=== PATIENT | male | born 1985 | race Caucasian/White ===

== ENCOUNTER 2019-09-04 16:29 | Inpatient (IN) | payer SELFPAY ==
[2019-09-04 17:47] VITALS: BP 165/78; PULSE 127; RESP 16; TEMP 37.1; O2SAT 97; BMI 23.8
--- NOTE | 2019-09-04 19:07 | PC.NURSE ---
SECURITY SITTING WITH PT
--- NOTE | 2019-09-04 19:28 | W.ED.PSYCH ---
Documented by User: KWADWO Ramirez 09/04/19 19:30 HPI - Psych General: Chief Complaint: Psychiatric Symptoms Stated Complaint: SEEING THINGS Time Seen by Provider: 09/04/19 19:30 History of Present Illness: HPI Narrative: Patient here because he started hallucinating not for the last continued through yesterday. He left the house his mom says and that when he returned he was seen things. Has been detox of alcohol about 3 weeks ago. Has no suicidal thoughts presently has had them in the past. Smashed car window out here in the parking lot with a crowbar. Police brought him in. Denies any drug use presently. Has history of meth abuse. MD complaint: altered mental status Onset (ago): day(s) (2) Duration: constant Relieving factors: none Context: recent alcohol abuse Associated psychiatric symptoms: homicidal ideation, auditory hallucinations, visual hallucinations and delusions Associated symptoms: Reports auditory hallucinations, visual hallucinations and homicidal ideation; Deny depression Treatments prior to arrival: none Review of Systems Const: Denies: fever, chills or body aches Eyes: Denies: change in vision or blurry vision ENMT: Denies: throat pain or nasal congestion Card: Denies: chest pain or shortness of breath on exertion Resp: Denies: shortness of breath, productive cough or non-productive cough GI: Denies: abdominal pain, nausea or vomiting : Denies: difficulty urinating Musc: Denies: extremity pain Skin/Breast: Denies: rash Neuro: Denies: headache Psych: Reports: visual hallucinations, auditory hallucinations and homicidal ideation; Denies: anxiety or depression Silvestre/Lymph: Denies: easy bruising [facility] ED PFSH: Social History Smoking and tobacco status: current every day smoker Physical Exam Narrative: EXAM NARRATIVE: Appears to be tweaking Const: COMMON NORMALS: no apparent distress, average body habitus and oriented x3 HENMT: COMMON NORMALS: normocephalic HEAD & SCALP: normal to inspection and normocephalic FACE & SINUS: normal facial exam Eye: COMMON NORMALS: conjunctivae normal GENERAL EYE: normal appearance of both eyes CONJUNCTIVA: Yes conjunctivae normal Neck/C-Spine: COMMON NORMALS: no JVD Chest: COMMONS NORMALS: inspection of chest normal Resp: COMMON NORMALS: normal respiratory effort and clear to auscultation bilaterally AUSCULTATION: clear to auscultation bilaterally Cardio: COMMON NORMALS: no JVD, regular rate and regular rhythm RATE: regular rate RHYTHM: regular rhythm GI: COMMON NORMALS: normal to inspection, nondistended, normoactive bowel sounds Extremity: COMMON NORMALS: normal to inspection and full ROM Neuro: COMMON NORMALS: oriented x3 MDM - Psych Lab Data: Labs: Lab Results 09/04/19 09/04/19 09/04/19 Range/Units 19:34 19:34 20:53 WBC 11.2 H (4.0-10.0) 10^3/ uL RBC 4.54 (4.1-5.3) 10^6/u L Hgb 13.9 (11.7-16.6) g/dL Hct 40.8 L (42.0-52.0) % MCV 89.9 (80-94) fL MCH 30.6 (28.0-34.0) pg MCHC 34.1 (30.0-36.0) g/dL RDW 13.1 (12.1-15.1) % Plt Count 261 (130-400) 10^3/c mm MPV 9.4 (7.4-10.4) fL Neut % (Auto) 69.5 % Lymph % (Auto) 15.5 % Cobb % (Auto) 13.6 % Eos % (Auto) 0.2 % Baso % (Auto) 0.8 % Neut # (Auto) 7.8 H (1.8-7.7) 10^3/u L Lymph # (Auto) 1.7 (0.8-4.8) 10^3/u L Cobb # (Auto) 1.5 H (0.2-0.9) 10^3/u L Eos # (Auto) 0.0 (0.0-0.8) 10^3/u L Baso # (Auto) 0.1 (0.0-0.1) 10^3/u L Nucleated RBC % (a uto) 0 % Nucleated RBCs # 0.0 /100WBC Sodium 136 (136-145) mmol/L Potassium 3.7 (3.5-5.1) mmol/L Chloride 95 L (98-107) mmol/L Carbon Dioxide 19 L (22-29) mmol/L Anion Gap 25.7 H (5-19) BUN 15 (6-20) mg/dL Creatinine 0.8 (0.7-1.2) mg/dL GFR Calculation 109.4 (90-130) mL/min Glucose 95 (65-115) mg/dL Calculated Osmolal ity 278 L (285-295) mOsm/k g Calcium 10.6 H (8.5-10.5) mg/dL Total Bilirubin 0.9 (0.15-1.2) mg/dL AST 64 H (0-40) U/L ALT 51 H (0-41) U/L Alkaline Phosphata se 81 (40-130) IU/L Total Protein 7.5 (6.6-8.7) g/dL Albumin 5.1 (3.5-5.2) g/dL Globulin 2.4 (1.3-4.6) g/dL Urine Color Yellow (Yellow) Urine Appearance Hazy A (CLEAR) Urine pH 6 (5-7) Ur Specific Gravit y 1.020 (1.005-1.030) Urine Protein 1+ H (Negative) Urine Glucose (UA) Norm (Normal) Urine Ketones 1+ H (Negative) Urine Blood Neg (Negative) Urine Nitrate Negative (Negative) Urine Bilirubin Neg (NEGATIVE) Urine Urobilinogen Norm (Negative) mg/dL Ur Leukocyte Iqra ase Negative (Negative) Urine RBC None (0-2) /hpf Urine WBC 5-10 H (0-5) /hpf Ur Squamous Epith Cells Rare (0-5) Urine Bacteria Trace (NONE) Urine Mucus 1+ Urine Sperm 2+ Salicylates 0.6 L (3-10) mg/dL Urine Opiates Scre en (Negative) ng/mL Acetaminophen < 5.0 L (10-30) ug/mL Ur Barbiturates Sc reen (Negative) ng/mL Ur Phencyclidine S crn (Negative) ng/mL Ur Amphetamines Sc reen (Negative) ng/mL U Benzodiazepines Scrn (Negative) ng/mL Urine Cocaine Scre en (Negative) ng/mL U Marijuana (THC) Screen (Negative) ng/mL Ethyl Alcohol 11 H (0-10) mg/dL 09/04/19 Range/Units 20:53 WBC (4.0-10.0) 10^3/ uL RBC (4.1-5.3) 10^6/u L Hgb (11.7-16.6) g/dL Hct (42.0-52.0) % MCV (80-94) fL MCH (28.0-34.0) pg MCHC (30.0-36.0) g/dL RDW (12.1-15.1) % Plt Count (130-400) 10^3/c mm MPV (7.4-10.4) fL Neut % (Auto) % Lymph % (Auto) % Cobb % (Auto) % Eos % (Auto) % Baso % (Auto) % Neut # (Auto) (1.8-7.7) 10^3/u L Lymph # (Auto) (0.8-4.8) 10^3/u L Cobb # (Auto) (0.2-0.9) 10^3/u L Eos # (Auto) (0.0-0.8) 10^3/u L Baso # (Auto) (0.0-0.1) 10^3/u L Nucleated RBC % (a uto) % Nucleated RBCs # /100WBC Sodium (136-145) mmol/L Potassium (3.5-5.1) mmol/L Chloride (98-107) mmol/L Carbon Dioxide (22-29) mmol/L Anion Gap (5-19) BUN (6-20) mg/dL Creatinine (0.7-1.2) mg/dL GFR Calculation (90-130) mL/min Glucose (65-115) mg/dL Calculated Osmolal ity (285-295) mOsm/k g Calcium (8.5-10.5) mg/dL Total Bilirubin (0.15-1.2) mg/dL AST (0-40) U/L ALT (0-41) U/L Alkaline Phosphata se (40-130) IU/L Total Protein (6.6-8.7) g/dL Albumin (3.5-5.2) g/dL Globulin (1.3-4.6) g/dL Urine Color (Yellow) Urine Appearance (CLEAR) Urine pH (5-7) Ur Specific Gravit y (1.005-1.030) Urine Protein (Negative) Urine Glucose (UA) (Normal) Urine Ketones (Negative) Urine Blood (Negative) Urine Nitrate (Negative) Urine Bilirubin (NEGATIVE) Urine Urobilinogen (Negative) mg/dL Ur Leukocyte Iqra ase (Negative) Urine RBC (0-2) /hpf Urine WBC (0-5) /hpf Ur Squamous Epith Cells (0-5) Urine Bacteria (NONE) Urine Mucus Urine Sperm Salicylates (3-10) mg/dL Urine Opiates Scre en Negative (Negative) ng/mL Acetaminophen (10-30) ug/mL Ur Barbiturates Sc reen Negative (Negative) ng/mL Ur Phencyclidine S crn Negative (Negative) ng/mL Ur Amphetamines Sc reen Positive H (Negative) ng/mL U Benzodiazepines Scrn Negative (Negative) ng/mL Urine Cocaine Scre en Negative (Negative) ng/mL U Marijuana (THC) Screen Negative (Negative) ng/mL Ethyl Alcohol (0-10) mg/dL Discharge Plan Discharge Patient Disposition: Admitted As Inpatient Admit Provider: Brendon Corona Clinical Impression: Drug-induced psychotic disorder Condition: Stable Interventions: ED Discharge Assessment Last Done: 09/04/19 22:11 Discharge Date/Time: 09/04/19 22:13 Sign Out Sign Out Data: Patient Sign Out occurred on 09/04/19 at 21:31. Patient's care was discussed, and care was transferred from to Nikita Beatty DO. Coding Level of Care Code ED Postal Inspector for Chg Fwd Exam Comprehensive Documented by User: Nikita Beatty DO 09/05/19 01:53 HPI - Psych General: Chief Complaint: Psychiatric Symptoms Stated Complaint: SEEING THINGS Time Seen by Provider: 09/04/19 19:30 [facility] ED PFSH: Social History Smoking and tobacco status: current every day smoker MDM - Psych Lab Data: Labs: Lab Results 03/09/04/19 09/04/19 Range/Units 19:34 19:34 20:53 WBC 11.2 H (4.0-10.0) 10^3/ uL RBC 4.54 (4.1-5.3) 10^6/u L Hgb 13.9 (11.7-16.6) g/dL Hct 40.8 L (42.0-52.0) % MCV 89.9 (80-94) fL MCH 30.6 (28.0-34.0) pg MCHC 34.1 (30.0-36.0) g/dL RDW 13.1 (12.1-15.1) % Plt Count 261 (130-400) 10^3/c mm MPV 9.4 (7.4-10.4) fL Neut % (Auto) 69.5 % Lymph % (Auto) 15.5 % Cobb % (Auto) 13.6 % Eos % (Auto) 0.2 % Baso % (Auto) 0.8 % Neut # (Auto) 7.8 H (1.8-7.7) 10^3/u L Lymph # (Auto) 1.7 (0.8-4.8) 10^3/u L Cobb # (Auto) 1.5 H (0.2-0.9) 10^3/u L Eos # (Auto) 0.0 (0.0-0.8) 10^3/u L Baso # (Auto) 0.1 (0.0-0.1) 10^3/u L Nucleated RBC % (a uto) 0 % Nucleated RBCs # 0.0 /100WBC Sodium 136 (136-145) mmol/L Potassium 3.7 (3.5-5.1) mmol/L Chloride 95 L (98-107) mmol/L Carbon Dioxide 19 L (22-29) mmol/L Anion Gap 25.7 H (5-19) BUN 15 (6-20) mg/dL Creatinine 0.8 (0.7-1.2) mg/dL GFR Calculation 109.4 (90-130) mL/min Glucose 95 (65-115) mg/dL Calculated Osmolal ity 278 L (285-295) mOsm/k g Calcium 10.6 H (8.5-10.5) mg/dL Total Bilirubin 0.9 (0.15-1.2) mg/dL AST 64 H (0-40) U/L ALT 51 H (0-41) U/L Alkaline Phosphata se 81 (40-130) IU/L Total Protein 7.5 (6.6-8.7) g/dL Albumin 5.1 (3.5-5.2) g/dL Globulin 2.4 (1.3-4.6) g/dL Urine Color Yellow (Yellow) Urine Appearance Hazy A (CLEAR) Urine pH 6 (5-7) Ur Specific Gravit y 1.020 (1.005-1.030) Urine Protein 1+ H (Negative) Urine Glucose (UA) Norm (Normal) Urine Ketones 1+ H (Negative) Urine Blood Neg (Negative) Urine Nitrate Negative (Negative) Urine Bilirubin Neg (NEGATIVE) Urine Urobilinogen Norm (Negative) mg/dL Ur Leukocyte Iqra ase Negative (Negative) Urine RBC None (0-2) /hpf Urine WBC 5-10 H (0-5) /hpf Ur Squamous Epith Cells Rare (0-5) Urine Bacteria Trace (NONE) Urine Mucus 1+ Urine Sperm 2+ Salicylates 0.6 L (3-10) mg/dL Urine Opiates Scre en (Negative) ng/mL Acetaminophen < 5.0 L (10-30) ug/mL Ur Barbiturates Sc reen (Negative) ng/mL Ur Phencyclidine S crn (Negative) ng/mL Ur Amphetamines Sc reen (Negative) ng/mL U Benzodiazepines Scrn (Negative) ng/mL Urine Cocaine Scre en (Negative) ng/mL U Marijuana (THC) Screen (Negative) ng/mL Ethyl Alcohol 11 H (0-10) mg/dL 09/04/19 Range/Units 20:53 WBC (4.0-10.0) 10^3/ uL RBC (4.1-5.3) 10^6/u L Hgb (11.7-16.6) g/dL Hct (42.0-52.0) % MCV (80-94) fL MCH (28.0-34.0) pg MCHC (30.0-36.0) g/dL RDW (12.1-15.1) % Plt Count (130-400) 10^3/c mm MPV (7.4-10.4) fL Neut % (Auto) % Lymph % (Auto) % Cobb % (Auto) % Eos % (Auto) % Baso % (Auto) % Neut # (Auto) (1.8-7.7) 10^3/u L Lymph # (Auto) (0.8-4.8) 10^3/u L Cobb # (Auto) (0.2-0.9) 10^3/u L Eos # (Auto) (0.0-0.8) 10^3/u L Baso # (Auto) (0.0-0.1) 10^3/u L Nucleated RBC % (a uto) % Nucleated RBCs # /100WBC Sodium (136-145) mmol/L Potassium (3.5-5.1) mmol/L Chloride (98-107) mmol/L Carbon Dioxide (22-29) mmol/L Anion Gap (5-19) BUN (6-20) mg/dL Creatinine (0.7-1.2) mg/dL GFR Calculation (90-130) mL/min Glucose (65-115) mg/dL Calculated Osmolal ity (285-295) mOsm/k g Calcium (8.5-10.5) mg/dL Total Bilirubin (0.15-1.2) mg/dL AST (0-40) U/L ALT (0-41) U/L Alkaline Phosphata se (40-130) IU/L Total Protein (6.6-8.7) g/dL Albumin (3.5-5.2) g/dL Globulin (1.3-4.6) g/dL Urine Color (Yellow) Urine Appearance (CLEAR) Urine pH (5-7) Ur Specific Gravit y (1.005-1.030) Urine Protein (Negative) Urine Glucose (UA) (Normal) Urine Ketones (Negative) Urine Blood (Negative) Urine Nitrate (Negative) Urine Bilirubin (NEGATIVE) Urine Urobilinogen (Negative) mg/dL Ur Leukocyte Iqra ase (Negative) Urine RBC (0-2) /hpf Urine WBC (0-5) /hpf Ur Squamous Epith Cells (0-5) Urine Bacteria (NONE) Urine Mucus Urine Sperm Salicylates (3-10) mg/dL Urine Opiates Scre en Negative (Negative) ng/mL Acetaminophen (10-30) ug/mL Ur Barbiturates Sc reen Negative (Negative) ng/mL Ur Phencyclidine S crn Negative (Negative) ng/mL Ur Amphetamines Sc reen Positive H (Negative) ng/mL U Benzodiazepines Scrn Negative (Negative) ng/mL Urine Cocaine Scre en Negative (Negative) ng/mL U Marijuana (THC) Screen Negative (Negative) ng/mL Ethyl Alcohol (0-10) mg/dL Discharge Plan Discharge Patient Disposition: Admitted As Inpatient Admit Provider: Brendon Corona Clinical Impression: Drug-induced psychotic disorder Condition: Stable Interventions: ED Discharge Assessment Last Done: 09/04/19 22:11 Discharge Date/Time: 09/04/19 22:13 Sign Out Sign Out Data: Patient Sign Out occurred on 09/04/19 at 21:31. Patient's care was discussed, and care was transferred from to Nikita Beatty DO. Coding Level of Care Code ED Postal Inspector for Shanon Fwd Exam Comprehensive
[2019-09-04 19:42] LABS: Basophils # 0.1 10^3/uL (0.0-0.1); Basophils % 0.8 %; Eosinophils % 0.2 %; Hematocrit 40.8 % (42.0-52.0); Hemoglobin 13.9 g/dL (11.7-16.6); Lymphocytes # 1.7 10^3/uL (0.8-4.8); Lymphocytes % 15.5 %; Mean Corpuscular HGB Conc 34.1 g/dL (30.0-36.0); Mean Corpuscular Hemoglobin 30.6 pg (28.0-34.0); Mean Corpuscular Volume 89.9 fL (80-94); Mean Platelet Volume 9.4 fL (7.4-10.4); Monocytes # 1.5 10^3/uL (0.2-0.9); Monocytes % 13.6 %; Neutrophils # 7.8 10^3/uL (1.8-7.7); Neutrophils % 69.5 %; Nucleated Red Blood Cells % 0 %; Platelet Count 261 10^3/cmm (130-400); Red Blood Count 4.54 10^6/uL (4.1-5.3); Red Cell Distribution Width 13.1 % (12.1-15.1); White Blood Count 11.2 10^3/uL (4.0-10.0)
[2019-09-04 19:56] LABS: Alanine Aminotransferase 51 U/L (0-41); Albumin Level 5.1 g/dL (3.5-5.2); Alcohol Level 11 mg/dL (0-10); Alkaline Phosphatase 81 IU/L (40-130); Anion Gap 25.7 (5-19); Aspartate Amino Transferase 64 U/L (0-40); Blood Urea Nitrogen 15 mg/dL (6-20); Calcium 10.6 mg/dL (8.5-10.5); Carbon Dioxide 19 mmol/L (22-29); Chloride 95 mmol/L (98-107); Globulin 2.4 g/dL (1.3-4.6); Glomerular Filtration Rate 109.4 mL/min (90-130); Glucose 95 mg/dL (65-115); Osmolality Calculated 278 mOsm/kg (285-295); Potassium 3.7 mmol/L (3.5-5.1); Salicylate 0.6 mg/dL (3-10); Sodium 136 mmol/L (136-145); Total Bilirubin 0.9 mg/dL (0.15-1.2); Total Protein 7.5 g/dL (6.6-8.7)
[2019-09-04 19:57] LABS: Acetaminophen < 5.0 ug/mL (10-30)
[2019-09-04 21:30] LABS: Add Urine Microscopic? YES; Bilirubin Urine Neg (NEGATIVE); Blood Urine Neg (Negative); Glucose Urine UA Norm (Normal); Ketones Urine 1+ (Negative); Leukocyte Esterase Urine Negative (Negative); Nitrate Urine Negative (Negative); Protein Urine 1+ (Negative); Urine Appearance Hazy (CLEAR); Urine Color Yellow (Yellow); Urobilinogen Urine Norm (Negative); pH Urine 6 (5-7)
[2019-09-04 21:31] LABS: Add Urine Culture? No; Bacteria Urine TRACE; Mucus Urine 1+; Sperm Urine 2+; Squamous Epithelial Cell Urine RARE (0-5)
[2019-09-04 21:34] LABS: Amphetamines Screen Urine Positive (Negative); Barbiturates Screen Urine Negative (Negative); Benzodiazepines Screen Urine Negative (Negative); Cocaine Screen Urine Negative (Negative); Opiate Screen Urine Negative (Negative); PCP Screen Urine Negative (Negative); THC Screen Urine Negative (Negative)
--- NOTE | 2019-09-04 21:39 | PC.PHAR ---
UNABLE TO OBTAIN MEDICATION LIST FROM PT. HE GETS IT THROUGH REHAB AND DOESN'T KNOW WHAT HE TAKES OR WHEN HE TAKES IT.
[2019-09-04 22:11] VITALS: BP 162/92; PULSE 110; RESP 18; TEMP 36.6; O2SAT 96
[2019-09-04 22:24] VITALS: BP 157/99; PULSE 115; RESP 19; TEMP 36.9; O2SAT 115
[2019-09-04] MEDS: trazodone 50 mg Tablet PO (23:04)
[2019-09-04] MEDS: hyDROXYzine 25 mg Capsule 50 MG PO (23:05)
--- NOTE | 2019-09-04 23:09 | PC.NURSE ---
pt unable to remain still and jerking so bad that he is hitting objects. Pt. restless and having difficulty answering questions. Medicated with Vistaril 50mgs and Trazadone 50mg po per prn order. Respirations even and unlabored. Will continue to monitor
[2019-09-05] MEDS: OLANZapine ODT 5 MG TABLET PO (00:40)
[2019-09-05] MEDS: haloperidol inj 5 mg/mL INJ 1 mL IM (00:52)
[2019-09-05] MEDS: LORazepam 2 mg/mL INJ 1 mL IM (00:54)
--- NOTE | 2019-09-05 00:57 | PC.NURSE ---
Pt remained up in room and unable to stay in bed. Jerking to extremities appeared to have become worse. Pt would agree to prn Im but each time would pull away and refused before givien. Pt noted to be very paranoid and stated I know about those tigers you have up front Pt did agree to zyprexa 5 mg odt. prn. After receiving prn Zyprexa pt up to desk and requested IM injection. Medicated with Ativan 2mg and haldol 5mgs IM per prn order. Repitrations even and unlabored. Will continue to monitor
--- NOTE | 2019-09-05 01:51 | PC.NURSE ---
come in last evening at 2218, WAS TWEEKING FROM METH, CONTINUED TO GET WORSE, UNABLE TO SIT STILL, VERY RED FACED.. WAS GIVEN TRAZODONE 50 MG PO , VISTARIL 50 MG PO FOR RESTLESSNESS AND SAYING HE NEEDS TO SLEEP. CONTINUES TO ESCALATE, VERY RESTLESS,WALKED IN [place] WITH HIM FOR QUITE SOME TIME, AGREED TO TAKE SOME ATIVAN AND HALDOL IM, KEPT CHANGING HIS MIND, KEPT WALKING WITH ASSIST IN [place], UNSTEADY ON FEET. FINALLY AGREED TO TAKE PO MEDS, WAS GIVEN ZYPREXA KITA HAWKINS AND ALL OF SUDDEN STATES, HELL GIVE ME THE SHOT , WAS GIVEN ATIVAN 2 MG IM AND HALDOL 5 MG IM RIGHT HIP HALLUCINATING, TALKING ABOUT TIGERS IN ROOM, APPEARS TO BE HAVING CONVERSATIONS WITH PEOPLE, THROWING ARMS AROUND, STRIPPED HIS BED. AT 0200 CONTINUES TO BE RESTLESS, HALLUCINATING., YELLING OUT AT TIMES. , LAYING IN BED.
--- NOTE | 2019-09-05 01:53 | PC.NURSE ---
pt continues to refuseto remain in bed and unable to remain still when standing. Gait unsteady. Jerking of exts remain since recevimg prns. Actively hallucinating. Has been having conversations with no one in room
--- NOTE | 2019-09-05 02:42 | PC.NURSE ---
Pt has appeared to be resting more comfortably over last 45 minutes. Has remained in bed and appears in a restless sleep. Continues to have twitching to exts but much less. Respirations even and unlabored, Will continue to monitor.
--- NOTE | 2019-09-05 03:25 | PC.NURSE ---
CONTINUES TO THRASH AROUND IN BED, HALLUCINATING, TALKING LOUDLY, UNABLE TO REDIRECT NOT BAD BEFORE.
[2019-09-05 06:00] VITALS: BP 123/7; PULSE 102; RESP 17; TEMP 36.4; O2SAT 96
--- NOTE | 2019-09-05 08:28 | PM.NHP ---
Providers/Chief Complaint Admitting Physician: Brendon Corona MD Primary Care Provider: KWADWO Mares Chief Complaint: SEEING THINGS HPI NPU History of Present Illness Chief complaint:None History of present illness:Don Patel is a 34 year old male Who initially started reporting symptoms of depression and suicidal ideation but later indicates that what he really needs his medication for pain. He denied any suicidal or homicidal ideation. He reports that he is currently in treatment at [facility] and his goal to return there when he is released from this hospitalization. Laboratory Tests 09/04/19 09/04/19 19:34 20:53 Urine Opiates Screen Negative Ur Barbiturates Screen Negative Ur Phencyclidine Scrn Negative Ur Amphetamines Screen Positive H U Benzodiazepines Scrn Negative Urine Cocaine Screen Negative U Marijuana (THC) Screen Negative Ethyl Alcohol 11 H ER physician note: HPI Narrative: Patient here because he started hallucinating not for the last continued through yesterday. He left the house his mom says and that when he returned he was seen things. Has been detox of alcohol about 3 weeks ago. Has no suicidal thoughts presently has had them in the past. Smashed car window out here in the parking lot with a crowbar. Police brought him in. Denies any drug use presently. Mental health history: -18 admit note Mr. Patel is a 32-year-old male who was admitted from [facility] ED where he was presented with his family with a complaint of auditory hallucinations. Patient is placed on a 96 hour hold supported by affidavits from the ED ED physician. As he presents today patient reports that he is been hearing voices for the past year or so, and states that at times they are overwhelming. He also reports a history of methamphetamine use, and states that he used most recently 1 week ago. His UDS is positive for amphetamines. Review of the medical record indicates that he was hospitalized on the NPU in August 2016 for similar presentation however his symptoms were more acute, and he did relate a history of severe methamphetamine use. At that time he was prescribed Haldol discharged. Patient reports that he has not continued he takes medication and that a medication cause my job lock . He does recall possibly a previous prescription of Depakote. He reports that his mood has been irritable, and he has difficulty shutting his mind off at night. When the patient was informed that he is on a 96 hour hold he became quite agitated and irritable. (1) Amphetamine use disorder, severe Hospital Course: The patient was admitted to the hospital inpatient psychiatric unit. He was provided a safe, supportive environment and encouraged to participate in individual, group, recreational, and milieu psychotherapies. Staff worked with him on positive coping skills. Medications were reviewed and adjustments were made based on the patient's symptoms and response to treatment. 1. Initially continued 96 hour hold. 2. Started Abilify 15 mg at bedtime for psychosis/mood stabilization 3. Started Remeron 15 mg by mouth daily at bedtime for sleep. 4. Consulted care management regarding discharge planning/chemical dependency treatment options. 5. Supportive counseling, group therapy provided as indicated and appropriate initially continued. Social history: Legal history: Past medical history: Mental Status Exam: Appearance: hygiene is fair; no gross neurological deficits., gait is unremarkable; AIMS=0 Speech: Speech is of normal rate and rhythm and easily understood. Thought processes: Thought processes are abstract. Judgment is adequate for safety. Associations: intact Psychotic processes: There is no indication of guarding or paranoia. There is no attention to the internal stimuli. Auditory and visual hallucinations are denied. Judgment: Insight is fair. Problem solving skills are adequate for safety. Orientation: The patient is oriented to person, place time and situation. Memory: no deficits noted in immediate, intermediate, or remote spheres. Attention: The patient is alert and interpersonally engaged. Language: Verbalizations are coherent. Fund of knowledge: Fund of knowledge is adequate. Affect/Mood: Affect is consistent with a Euthymic mood. Denying suicidal ideation Affective range appropriate. Psychosis: perception unimpaired except through cognitive distortion; reality testing intact. Diagnoses:Methamphetamine abuse Assessment:Patient has a primary diagnosis polysubstance abuse and psychosis is clearly secondary to this problem. Over the first 24 hours becoming clean, his psychosis resolved. Treatment plan: Due to the psychiatric conditions and treatment listed in the Assessment and Plan - the patient requires continued hospitalization. Will provide a safe and therapeutic environment for patient.. Will continue inpatient treatment to allow for medication adjustment and monitoring. Will continue q15 min safety checks. Will continue current medications and monitor for medication side effects. Monitor patient's mood, sleep, appetite, and behavior closely. Encourage patient to participate in individual and group therapeutic sessions on the antonio. Estimated length of stay 5 days The expected benefits and potential side effects of patient's psychiatric medications were discussed with the patient. The patient understands and consents to treatment.CRITERIA FOR DISCHARGE: stable on medications and no longer an imminent risk Meds NPU Allergies Allergy/AdvReac Type Severity Reaction Status Date / Time No Known Allergies Allergy Verified 09/04/19 19:04 PFSH NPU PFSH: Social History Smoking and tobacco status: current every day smoker Vitals/I&O/Wt Last Vital Signs Temp 97.5 F L 09/05/19 06:00 Pulse 102 H 09/05/19 06:00 Resp 17 09/05/19 06:00 BP 123/7 09/05/19 06:00 Pulse Ox 96 09/05/19 06:00 Weight last 48 hrs Weight 67.132 kg Data NPU : 09/04/19 19:34 09/04/19 19:34 Involuntary Hold Information 96 Hour Hold: 96 Hour Involuntary Admission: No Attestations NPU Medical Necessity Statement*: Patient will remain in the hospital another 1-2 nights to confirm that he is not an imminent risk to self or others. Coding Level of Care Code Acute Branch Office Administrator for Shanon Perez
[2019-09-05 14:00] VITALS: BP 119/65; PULSE 108; RESP 18; TEMP 36.6; O2SAT 97
[2019-09-05] MEDS: gabapentin 300 mg Capsule 600 MG PO (14:16)
[2019-09-05 22:00] VITALS: BP 105/70; PULSE 119; RESP 18; TEMP 36.6; O2SAT 94
[2019-09-06] MEDS: PARoxetine 20 mg Tablet 30 MG PO (08:16)
[2019-09-06] MEDS: gabapentin 300 mg Capsule 600 MG PO ×2 (08:16→14:39)
[2019-09-06 09:28] VITALS: BP 110/63; PULSE 101; RESP 19; TEMP 36.8; O2SAT 96
[2019-09-06 10:38] VITALS: BP 110/63; PULSE 101; RESP 19; TEMP 36.8; O2SAT 96
[2019-09-06] MEDS: loperamide 2 mg Capsule PO (11:41)
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
== END 2019-09-06 15:18 | disposition home or self-care (01) | DRG 885 ==
LOC: ER 21:31 → NP 21:52
PROVIDERS: Nurse Practitioner Family; Admitting Provider Psychiatry & Neurology Psychiatry; Emergency Provider Family Medicine; Family Provider Nurse Practitioner; PCP Nurse Practitioner; Visit Provider Psychiatry & Neurology Psychiatry
DX: F29 Unspecified psychosis not due to a substance or known physiological condition (principal); F10.21 Alcohol dependence, in remission; F17.210 Nicotine dependence, cigarettes, uncomplicated; F19.10 Other psychoactive substance abuse, uncomplicated
CPT/HCPCS: 12345; 36415; 80053; 80306; 80307; 81001; 85025; 96372; 99284; A9270; J1630; J2060

== ENCOUNTER → 2020-03-23 16:18 | Outpatient (BNVA) | payer OTHER, SELFPAY | PROVIDERS: Family Provider Nurse Practitioner; PCP Nurse Practitioner; Visit Provider Nurse Practitioner Family | DX: Z20.828 Contact with and (suspected) exposure to other viral communicable diseases (principal) | CPT/HCPCS: 87635 ==

== ENCOUNTER → 2020-12-31 16:21 | Outpatient (BNVA) | payer OTHER, SELFPAY | PROVIDERS: Family Provider Nurse Practitioner; PCP Nurse Practitioner; Visit Provider Nurse Practitioner Family | DX: Z20.822 Contact with and (suspected) exposure to COVID-19 (principal) | CPT/HCPCS: 87635 ==

== ENCOUNTER 2022-05-21 09:12 | Emergency (ER) | payer SELFPAY ==
[2022-05-21] VITALS (36 sets, daily range): BP systolic 119–159; BP diastolic 74–97; PULSE 75–85; RESP 14–18; TEMP 36.8; O2SAT 95–100; BMI 26.6
--- NOTE | 2022-05-21 09:26 | ECG_ITS ---
[facility] Test Date: 2022-05-21 Pat Name: Don Patel Department: Room: Gender: Male Automotive Porter: : 1985 Requested By: Nikita Garcia Order Number: [id number] Gaurav MD: Myah Jasso M.D. Measurements Intervals Sebastian Rate: 68 P: 59 [place]: 172 QRS: 67 QRSD: 102 T: 35 QT: 375 QTc: 400 Interpretive Statements SINUS RHYTHM WITH SINUS ARRHYTHMIA NONSPECIFIC ST & T-WAVE ABNORMALITY Compared to ECG 08/31/2016 22:03:45 T-wave abnormality now present ST (T wave) deviation no longer present Early repolarization no longer present Electronically Signed On 05-21-2022 19:01:06 [employer] by Myah Jasso M.D. [id number]
--- NOTE | 2022-05-21 12:54 | XRR_ITS ---
PROCEDURE INFORMATION: Exam: XR Chest Exam date and time: 05/21/2022 1:05 PM Age: 36 years old Clinical indication: Cough TECHNIQUE: Imaging protocol: Radiologic exam of the chest. Views: 2 views. COMPARISON: CR XR chest 1V [id number] 08/31/2016 7:39 PM FINDINGS: Lungs: Unremarkable. No consolidation. Pleural spaces: Unremarkable. No pleural effusion. No pneumothorax. Heart/Mediastinum: Unremarkable. No cardiomegaly. Bones/joints: Unremarkable. XR/XR chest 2V* [id number] IMPRESSION: No acute findings.
--- NOTE | 2022-05-21 15:03 | W.ED.CHESTPA ---
HPI - Chest Pain General: Chief Complaint: Chest Pain Stated Complaint: chest pain Time Seen by Provider: 05/21/22 14:41 Source: patient and family Mode of arrival: ambulatory Limitations: no limitations History of Present Illness: This patient presents to our emergency department because of concerns about left-sided chest pain. He states the symptoms of been present approximately 1 week. He states it is predominantly on the left chest without radiation. He states they are worsened by cough, turning twisting and deep breaths. He is unaware of any antecedent injury, falls, leaning over objects or other potential etiologies of a musculoskeletal pain. He denies any fevers or chills. He states his cough is usually related to his smoking and has not changed and was there preceding his current symptoms. He has no known history of COPD coronary artery disease etc. He has no history of thromboembolic events or risk for same. Does not take any daily medications. No known exposure to illness and no one else is ill in his home. He is a tobacco user. He is right-handed. MD complaint: chest pain Pain location: left chest Exacerbating factors: inspiration, palpation and movement Associated symptoms: Deny abdominal pain, dyspnea, fever(s), nausea, palpitations, syncope or vomiting Risk Factors: Coronary artery disease risk factors: smoking history Review of Systems Const: Denies: fever(s) or chills Eyes: Denies: change in vision ENMT: Reports: nasal congestion and sinus pain; Denies: throat pain or odynophagia Card: Reports: chest pain; Denies: palpitations, irregular heart rhythm, lightheadedness, syncope or pre-syncope Resp: Reports: non-productive cough; Denies: dyspnea, wheezing or stridor GI: Denies: abdominal pain, nausea, vomiting or diarrhea : Denies: flank pain or difficulty urinating Musc: Denies: neck pain, back pain, extremity pain or extremity swelling Skin/Breast: Denies: rash Neuro: Denies: headache(s), numbness in extremities or weakness in extremities Silvestre/Lymph: Denies: easy bruising or easy bleeding All/Imm: Denies: urticaria PFSH ED PFSH: Social History Smoking and tobacco status: current every day smoker cigarettes Packs smoked per day: 0.5 Alcohol intake: former Year of sobriety/quit date alcohol: 2018 History of recent travel: No Current gender identity: Male Physical Exam Narrative: EXAM NARRATIVE: He is alert and cooperative. His speech is goal-directed and fluent. Appears to be in no acute distress. Const: COMMON NORMALS: no acute distress, average body habitus, patient oriented x3 and healthy appearing GENERAL APPEARANCE: cooperative and comfortable HENMT: COMMON NORMALS: normocephalic, Normal external nose present, Normal nasal mucous membranes and turbinates present, moist oral mucous membranes and oropharynx normal HEAD & SCALP: normocephalic FACE & SINUS: normal facial exam and sinuses nontender NOSE: Normal external nose present and Normal nasal mucous membranes and turbinates present Eye: COMMON NORMALS: Equal, round and reactive pupils present, EOMs intact bilaterally and conjunctivae normal CONJUNCTIVA: Yes conjunctivae normal PUPIL: Yes Equal, round and reactive pupils present Neck/C-Spine: COMMON NORMALS: full ROM, no lymphadenopathy, no JVD and No carotid bruits Chest: COMMONS NORMALS: normal inspection of the chest OTHER: He has tenderness in the left anterior lateral chest. No skin rashes or ecchymosis or subcutaneous emphysema. No palpable rib crepitus. Inspiration as well as twisting and turning of his trunk reproduces symptoms. Resp: COMMON NORMALS: normal respiratory effort, No use of accessory muscles and clear to auscultation bilaterally AUSCULTATION: clear to auscultation bilaterally Cardio: COMMON NORMALS: no JVD, regular rate, regular rhythm, No murmurs present (Cardio) and Peripheral pulses 2+ throughout RATE: regular rate RHYTHM: regular rhythm PERIPHERAL PULSES: Peripheral pulses 2+ throughout GI: COMMON NORMALS: Normal to inspection, nondistended, normoactive bowel sounds present, Soft to palpation and non-tender PALPATION: Yes Soft to palpation : COMMON NORMALS: Yes no CVA tenderness BLADDER/KIDNEY EXAM: Yes no CVA tenderness Back/Pelvis: COMMON NORMALS: no CVA tenderness, thoracic and lumbar spine normal to inspection, no thoracic nor lumbar tenderness and thoraco-lumbar ROM normal Extremity: COMMON NORMALS: normal to inspection, full ROM, capillary refill normal, no joint enlargement, no calf tenderness and no pedal edema Neuro: COMMON NORMALS: patient oriented x3, moves all extremities, no focal motor deficits, no sensory deficits noted and gait normal GAIT: Yes Normal gait present Psych: COMMON NORMALS: mental status grossly normal Skin: COMMON NORMALS: no rashes or lesions noted, turgor normal and no jaundice GENERAL SKIN EXAM: no rashes or lesions noted and turgor normal Course Reevaluation(s): Reevaluation #1: Patient has remained stable. No new or focal findings on his repeat evaluation. His vital signs have remained stable throughout his emergency department stay. His chest x-ray, EKG, laboratories are reassuring and support no evidence of an ongoing emergency medical condition. Time: 17:45 Vital Signs: Vital signs: Vital Signs Temperature 98.3 F 05/21/22 11:47 Pulse Rate 85 05/21/22 14:30 Respiratory Rate 18 05/21/22 14:30 Blood Pressure 119/81 05/21/22 17:15 Pulse Oximetry 96 05/21/22 17:15 Oxygen Delivery Me thod 05/21/22 14:30 MDM - Chest Pain Medical Decision Making Patient presents to the emergency department left-sided chest pain. He has history of tobacco use and chronic cough but denies any fevers or productivity to his cough. He denies any known chest trauma, lifting, falls etc. His clinical evaluation revealed chest wall tenderness that was easily reproducible with palpation as well as torquing of his trunk etc. There is no skin rashes to suggest zoster, no evidence of pneumothorax, rib fractures etc. His PERC score was negative and this was supported by negative D-dimer. His troponin was also negative along with a unremarkable EKG mitigating against ACS. It would appear to be chest wall pain of uncertain etiology at this time. All return precautions were reviewed with both he and his spouse. Lab Data I reviewed the patient's lab results. Radiology Impressions Chest X-Ray 05/21/22 12:54 IMPRESSION: No acute findings. Laboratory Results D-Dimer 0.39 ug/mIFEU (0-0.59) 05/21/22 15:48 Troponin T Gen 5 ng/L 6 ng/L (0-15) 05/21/22 15:48 EKG Data EKG 1: I personally reviewed and interpreted this EKG as follows: Interpretation: EKG reveals a ventricular rate of 68 bpm consistent with sinus rhythm. He has normal intervals, normal axis, no acute ST-T wave changes noted. Discharge Plan Discharge Patient Disposition: Home Clinical Impression: Chest pain Condition: Stable Prescriptions: New prednisone 20 mg tablet 40 mg PO DAILY 5 Days Qty: 10 0RF tramadol 50 mg tablet 50 mg PO BID PRN (Reason: pain) Qty: 10 0RF No Action Aleve 220 mg Capsule 220 mg PO Q8H PRN (Reason: Pain) Discharge Orders: Discharge ED (Routine); Ordered 05/21/22 Ordered By: Jerel Wade Referrals: Geri Cárdenas FNP [Primary Care Provider] - Discharge Diet: Usual diet Discharge Activity: Increase activity as tolerated Patient Instructions: Opioid Safety, Pain Management Activity Restrictions/Additional Instructions: As we discussed while you are in the emergency department we did not have any findings today that suggest a serious cause of your pain. We have recommended to medications to help with your symptoms. Should you have worsening of your symptoms, develop fever, become short of breath or any other concerns return to this or the nearest emergency department. We also recommend you stop smoking tobacco as it is harmful and could lead to worsening health problems. Coding Level of Care Code ED Shipping Processor for Shanon Perez Exam Comprehensive
[2022-05-21 16:11] LABS: D Dimer 0.39 ug/mIFEU (0-0.59)
[2022-05-21 17:16] LABS: Troponin T (5th) Once 6 ng/L (0-15)
== END 2022-05-21 17:53 | disposition home or self-care (01) ==
PROVIDERS: Emergency Provider Emergency Medicine; PCP Nurse Practitioner
DX: R07.9 Chest pain, unspecified (principal); F17.210 Nicotine dependence, cigarettes, uncomplicated
CPT/HCPCS: 71046; 84484; 85378; 93005; 99285

== ENCOUNTER 2022-10-08 09:28 | Emergency (ER) | payer SELFPAY ==
[2022-10-08 09:33] VITALS: BP 188/86; PULSE 101; RESP 18; TEMP 36.4; O2SAT 96
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
[2022-10-08 10:06] VITALS: PULSE 95
[2022-10-08] MEDS: ceFAZolin 1,000 MG in water for injection-sterile 2.5 ML 2.5 MG IM (10:12)
--- NOTE | 2022-10-08 10:16 | DCPLANNER ---
credentialing manager seen patient due to no primary care physician. credentialing manager spoke with patient and offered to help get patient established with a primary care physician, patient stated that he does not have insurance. credentialing manager gave patient the information to [facility] where patient can apply for the sliding scale.
[2022-10-08 11:32] VITALS: PULSE 95; RESP 18; O2SAT 99
--- NOTE | 2022-10-08 11:37 | DCPLANNER ---
Addendum entered by Keily Colvin 10/09/22 08:35: alteration manager received the following message from the ortho clinic regarding follow up appointment: attempt made to contact patient - left vm and mailed letter to call our clinic to schedule w/ dr cooper who is fire prevention engineer. Original Note: alteration manager had message to schedule a follow up appointment for patient with ortho. alteration manager sent patients information to the front office staff at ortho. Patients information will be printed and reviewed. Clinic will call patient with appointment information.
== END 2022-10-08 11:35 | disposition home or self-care (01) ==
PROVIDERS: Emergency Provider Physician Assistant
DX: S62.660B Nondisplaced fracture of distal phalanx of right index finger, initial encounter for open fracture (principal); F17.210 Nicotine dependence, cigarettes, uncomplicated; W22.8XXA Striking against or struck by other objects, initial encounter
CPT/HCPCS: 12001; 73140; 96365; 96372; 99284; A6446; J0690

== ENCOUNTER 2023-07-01 11:23 | Emergency (ER) | payer MEDICAID, SELFPAY ==
[2023-07-01 11:31] VITALS: BP 160/98; PULSE 107; RESP 16; TEMP 36.4; O2SAT 95; BMI 27.3
[2023-07-01 12:03] LABS: Basophils # 0.1 10^3/uL (0.0-0.1); Basophils % 1.5 %; Eosinophils % 0.4 %; Lymphocytes % 19.5 %; Mean Corpuscular HGB Conc 34.5 g/dL (30-55); Mean Corpuscular Hemoglobin 33.7 pg (27-33); Mean Corpuscular Volume 97.7 fl (82-101); Mean Platelet Volume 10.6 fL (7.4-10.4); Monocytes # 0.6 10^3/uL (0.2-0.9); Monocytes % 10.9 %; Neutrophils # 3.59 10^3/uL (1.8-7.7); Neutrophils % 67.5 %; Nucleated Red Blood Cells % 0 %; Platelet Count 163 10^3/cmm (157-399); Red Blood Count 4.81 10^6/uL (3.85-5.65); Red Cell Distribution Width 12.3 % (12.1-15.1); White Blood Count 5.32 10^3/uL (3.29-11.43)
[2023-07-01] MEDS: sodium chloride 0.9% 1,000 ML 999 ML IV (12:11)
[2023-07-01] MEDS: ondansetron 2 mg/ML SDV 2 mL 4 MG IVP (12:11)
[2023-07-01 12:14] LABS: Alanine Aminotransferase 242 U/L (0-41); Albumin Level 3.8 g/dL (3.5-5.2); Alkaline Phosphatase 589 U/L (40-130); Blood Urea Nitrogen 14 mg/dL (6-20); Calcium 8.6 mg/dL (8.5-10.5); Carbon Dioxide 27 mmol/L (22-29); Chloride 99 mmol/L (98-107); Globulin 2.9 g/dL (1.3-4.6); Glomerular Filtration Rate 82.8 mL/min (90-130); Glucose 217 mg/dL (65-115); Lipase 27 U/L (13-60); Osmolality Calculated 291 mOsm/kg (285-295); Sodium 137 mmol/L (136-145); Total Bilirubin 2.4 mg/dL (0.15-1.2); Total Protein 6.7 g/dL (6.6-8.7)
[2023-07-01 12:23] LABS: Aspartate Amino Transferase 936 U/L (0-40)
--- NOTE | 2023-07-01 12:27 | US_ITS ---
WS: [id number] ULTRASOUND ABDOMEN LIMITED CLINICAL INFORMATION: ruq pain COMPARISON: None. FINDINGS: Liver Size: Enlarged Craniocaudal length: 19.7 cm. Echogenicity: Dense Surface nodularity: None. Mass (size and location): None. Bile ducts Intrahepatic ducts: Normal. Common bile duct diameter: 0.6 cm. Gallbladder Fluid distended gallbladder with sludge. Gallstones: None. Gallbladder sludge: Present Gallbladder wall thickening: None. Pericholecystic fluid: None. Sonographic Chatman sign: Absent. Pancreas Normal as visualized. Right kidney: Normal. Hydronephrosis: None. Size: 10.9 cm x 6.2 cm x 5.0 cm. Abdominal aorta and IVC Visualized portions are normal. Ascites: None. IMPRESSION: 1. Hepatomegaly with diffuse fatty infiltration. 2. Fluid distended gallbladder with sludge. No gallbladder wall thickening or pericholecystic fluid. 3. Normal common bile duct.
[2023-07-01 12:33] LABS: Influenza A by IFA negative (Negative); Influenza B by IFA negative (Negative); SARS Covid-2 Antigen negative (Negative)
[2023-07-01 12:44] LABS: Glucose Urine UA Trace (Normal); Ketones Urine 1+ (Negative); Protein Urine 3+ (Negative); Urine Appearance Hazy (CLEAR); Urine Color Dark Yellow (Yellow); pH Urine 7 (5-7)
[2023-07-01 12:45] VITALS: BP 146/104; PULSE 99; RESP 16; O2SAT 96
[2023-07-01 12:45] LABS: Add Urine Microscopic? YES; Bilirubin Urine 2+ (Negative); Blood Urine 3+ (Negative); Leukocyte Esterase Urine 1+ (Negative); Nitrate Urine Positive (Negative); Urobilinogen Urine 4+ mg/dL (Negative)
[2023-07-01 12:48] LABS: Add Urine Culture? Yes; Bacteria Urine TRACE /hpf; Mucus Urine 4+ /hpf; RBC Urine 15-25 /hpf (0-2); Squamous Epithelial Cell Urine 0-4 /hpf (0-5); Transitional Epi Cells Urine 0-4 /hpf; WBC Urine 0-4 /hpf (0-5)
--- NOTE | 2023-07-01 12:52 | PC.PHAR ---
pt states he takes no prescription medications or otc medications
--- NOTE | 2023-07-01 12:57 | CT_ITS ---
WS: [id number] CT ABDOMEN PELVIS TECHNIQUE: Contrast-enhanced CT of the abdomen and pelvis with coronal and sagittal reformatted image s. CLINICAL INFORMATION: abd pain COMPARISON: None. DLP: 545.[address] scans at [facility] use at least one of these dose optimization techniques: automated e xposure control; mA and/or kV adjustment per patient size (includes targeted exams where dose is matc hed to clinical indication); or iterative reconstruction. FINDINGS: Hepatomegaly with diffuse fatty infiltration of the liver. Normal portal vein and splenic vein. Lung bases are well aerated. Normal GE junction. Normal pancreatic parenchymal enhancement. Adrenal glands are normal. Normal splenic enhancement. Normal renal parenchymal enhancement. No hydronephrosis. Normal caliber abdominal aorta. Normal appendix in the RIGHT lower quadrant. Normal sigmoid colon. No evidence of large or small bowel obstruction. Tiny fat-containing umbilical hernia. No other suspici ous findings. IMPRESSION: 1. Hepatomegaly diffuse infiltration of the liver. 2. Fluid distended gallbladder. No gallbladder wall thickening. 3. Normal appendix in the RIGHT lower quadrant. 4. No other suspicious findings.
--- NOTE | 2023-07-01 13:04 | ED_ITS ---
HPI - Nausea/Vomiting/Diarrhea 2 General: Chief complaint: Nausea/Vomiting/Diarrhea Stated complaint: cough, fever, N/V Time Seen by Provider: 07/01/23 11:55 Source: patient Mode of arrival: ambulatory Limitations: no limitations History of Present Illness: 38-year-old male who states that he has been having nausea vomiting along with epigastric abdominal pains been going on for last 5 to 6 days. States pain is currently 6 out of 10 denies any worsening proving factors states he had difficulty holding anything down. Denies any fevers denies any cough or shortness of breath. Associated nausea: Yes Associated symtoms: Reports nausea; Denies chest pain, dysuria or headache(s) Review of Systems 2 Const: Denies: fever(s), chills, body aches or change in appetite Eyes: Denies: blurry vision or eye discomfort ENMT: Denies: throat pain or dental pain Card: Denies: chest pain Resp: Denies: dyspnea GI: Reports: abdominal pain, nausea and vomiting; Denies: diarrhea : Denies: dysuria Musc: Denies: neck pain or back pain Skin/Breast: Denies: rash Neuro: Denies: headache(s) PFSH ED 2 PFSH: Social History Smoking and tobacco/nicotine status: current every day tobacco/nicotine user cigarettes Packs smoked per day: 0.5 Alcohol intake: former Year of sobriety/quit date alcohol: 2018 Substance/Drug Use: former Date of last use: hx of meth; 2018 Current gender identity: Male Physical Exam 2 Const: COMMON NORMALS: no acute distress, patient oriented x3 and healthy appearing HENMT: COMMON NORMALS: normocephalic and atraumatic HEAD & SCALP: n ormocephalic and atraumatic Neck/C-Spine: COMMON NORMALS: full ROM and supple Chest: COMMONS NORMALS: normal inspection of the chest Resp: COMMON NORMALS: normal respiratory effort, No retractions, No use of accessory muscles and clear to auscultation bilaterally AUSCULTATION: clear to auscultation bilaterally Cardio: COMMON NORMALS: regular rate, regular rhythm and No murmurs present (Cardio) RATE: regular rate RHYTHM: regular rhythm GI: COMMON NORMALS: Normal to inspection, nondistended, normoactive bowel sounds present, Soft to palpation and no masses PALPATION: Yes Soft to palpation OTHER: epigastric tenderness Extremity: COMMON NORMALS: normal to inspection and full ROM Neuro: COMMON NORMALS: patient oriented x3, moves all extremities and no focal motor deficits Psych: COMMON NORMALS: mental status grossly normal, Normal thought process present and cooperative THOUGHT PROCESS: Normal thought process present Skin: COMMON NORMALS: no rashes or lesions noted and no wounds GENERAL SKIN EXAM: no rashes or lesions noted Course 2 Vital Signs: Vital signs: Vital Signs Temperature 97.5 F L 07/01/23 14:06 Pulse Rate 90 07/01/23 14:06 Respiratory Rate 14 07/01/23 14:06 Blood Pressure 146/104 07/01/23 14:06 Pulse Oximetry 97 07/01/23 14:06 Oxygen Delivery Me thod Room Air 07/01/23 13:14 MDM - Nausea/Vomiting/Diarrhea Medical Decision Making Patient presents here with vomiting along with some abdominal pain he does have elevated liver enzymes and bilirubin imaging shows hepatomegaly he does state that he is a daily drinker he has no signs of acute findings here. He is to follow-up with a PCP for his liver findings return if worsening he understands agrees to plan. Medical Records I reviewed the patient's medical records. Lab Data I reviewed the patient's lab results. 07/01/23 11:50 07/01/23 11:50 Laboratory Results WBC 5.32 10^3/uL (3.29-11.43) 07/01/23 11:50 RBC 4.81 10^6/uL (3.85-5.65) 07/01/23 11:50 Hgb 16.20 g/dL (11.27-16.99) 07/01/23 11:50 Hct 47.0 % (37-53) 07/01/23 11:50 MCV 97.7 fl (82-101) 07/01/23 11:50 MCH 33.7 pg (27-33) H 07/01/23 11:50 MCHC 34.5 g/dL (30-55) 07/01/23 11:50 RDW 12.3 % (12.1-15.1) 07/01/23 11:50 Plt Count 163 10^3/cmm (157-399) 07/01/23 11:50 MPV 10.6 fL (7.4-10.4) H 07/01/23 11:50 Neut % (Auto) 67.5 % 07/01/23 11:50 Lymph % (Auto) 19.5 % 07/01/23 11:50 [facility] % (Auto) 10.9 % 07/01/23 11:50 Eos % (Auto) 0.4 % 07/01/23 11:50 Baso % (Auto) 1.5 % 07/01/23 11:50 Neut # (Auto) 3.59 10^3/uL (1.8-7.7) 07/01/23 11:50 Lymph # (Auto) 1.0 10^3/uL (0.8-4.8) 07/01/23 11:50 [facility] # (Auto) 0.6 10^3/uL (0.2-0.9) 07/01/23 11:50 Eos # (Auto) 0.0 10^3/uL (0.0-0.8) 07/01/23 11:50 Baso # (Auto) 0.1 10^3/uL (0.0-0.1) 07/01/23 11:50 Nucleated RBC % (auto) 0 % 07/01/23 11:50 Nucleated RBCs # 0.0 /100WBC 07/01/23 11:50 Sodium 137 mmol/L (136-145) 07/01/23 11:50 Potassium 4.0 mmol/L (3.5-5.1) 07/01/23 11:50 Chloride 99 mmol/L (98-107) 07/01/23 11:50 Carbon Dioxide 27 mmol/L (22-29) 07/01/23 11:50 Anion Gap 15.0 (5-19) 07/01/23 11:50 BUN 14 mg/dL (6-20) 07/01/23 11:50 Creatinine 1.0 mg/dL (0.7-1.2) 07/01/23 11:50 GFR Calculation 82.8 mL/min (90-130) L 07/01/23 11:50 Glucose 217 mg/dL (65-115) H 07/01/23 11:50 Calculated Osmolality 291 mOsm/kg (285-295) 07/01/23 11:50 Calcium 8.6 mg/dL (8.5-10.5) 07/01/23 11:50 Total Bilirubin 2.4 mg/dL (0.15-1.2) H 07/01/23 11:50 AST 936 U/L (0-40) H 07/01/23 11:50 ALT 242 U/L (0-41) H 07/01/23 11:50 Alkaline Phosphatase 589 U/L (40-130) H 07/01/23 11:50 Total Protein 6.7 g/dL (6.6-8.7) 07/01/23 11:50 Albumin 3.8 g/dL (3.5-5.2) 07/01/23 11:50 Globulin 2.9 g/dL (1.3-4.6) 07/01/23 11:50 Lipase 27 U/L (13-60) 07/01/23 11:50 Urine Color Dark yellow (Yellow) 07/01/23 12:02 Urine Appearance Hazy (CLEAR) A 07/01/23 12:02 Urine pH 7 (5-7) 07/01/23 12:02 Ur Specific [place] 1.010 (1.005-1.030) 07/01/23 12:02 Urine Protein 3+ (Negative) H 07/01/23 12:02 Urine Glucose (UA) Trace (Normal) H 07/01/23 12:02 Urine Ketones 1+ (Negative) H 07/01/23 12:02 Urine Blood 3+ (Negative) H 07/01/23 12:02 Urine Nitrate Positive (Negative) H 07/01/23 12:02 Urine Bilirubin 2+ (Negative) H 07/01/23 12:02 Urine Urobilinogen 4+ mg/dL (Negative) H 07/01/23 12:02 Ur Leukocyte Esterase 1+ (Negative) H 07/01/23 12:02 Urine RBC 15-25 /hpf (0-2) H 07/01/23 12:02 Urine WBC 0-4 /hpf (0-5) H 07/01/23 12:02 Ur Squamous Epith Cells 0-4 /hpf (0-5) H 07/01/23 12:02 Ur Transition Epith Cell 0-4 /hpf 07/01/23 12:02 Amorphous Sediment Not Reportable 07/01/23 12:02 Urine Bacteria Trace /hpf (NONE) 07/01/23 12:02 Urine Mucus 4+ /hpf 07/01/23 12:02 Hepatitis A IgM Ab Non-reactive (Nonreactive) 07/01/23 11:50 Hep Bs Antigen Non-reactive (Nonreactive) 07/01/23 11:50 Hep Bs Antibody 542.3 (11.5-1000) 07/01/23 11:50 Influenza Type A Ag negative (Negative) 07/01/23 12:04 Influenza Type B Ag negative (Negative) 07/01/23 12:04 SARS-CoV-2 Ag (Rapid) negative (Negative) 07/01/23 12:04 All radiology interpretation(s) finalized by discharge Discharge Plan Discharge Patient Disposition: Home Clinical Impression: Vomiting, Hepatomegaly Condition: Stable Prescriptions: New ondansetron 4 mg tablet,disintegrating 4 mg PO Q6H PRN (Reason: nausea and vomiting) Qty: 14 0RF Discharge Orders: Discharge ED (Routine); Ordered 07/01/23 Ordered By: Naomi Camacho Discharge Diet: Advance as tolerated Discharge Activity: Resume usual activity Patient Instructions: Acute Nausea and Vomiting (ED) Coding Level of Care Code ED Japanese Interpreter for Shanon Perez
[2023-07-01 13:14] VITALS: BP 146/104; PULSE 90; RESP 14; O2SAT 97
[2023-07-01] MEDS: iohexol 350 mg/mL 500 mL Btl (per mL) IV (13:14)
[2023-07-01 14:06] VITALS: BP 146/104; PULSE 90; RESP 14; TEMP 36.4; O2SAT 97
[2023-07-01 15:04] LABS: Hepatitis A Antibody IgM Non-Reactive (Nonreactive); Hepatitis B Core AB, Total Reactive (Nonreactive); Hepatitis B Surface AB 542.3 (11.5-1000); Hepatitis B Surface Antigen Non-Reactive (Nonreactive); Hepatitis C Virus Antibody Reactive (Nonreactive)
--- NOTE | 2023-07-01 15:32 | DCPLANNER ---
Message was sent to [facility] to establish care. Message was sent on 07/01/23 at 0633. [facility] to contact patient
[2023-07-03 14:19] LABS: HEP C RNA Viral Load Quant <1.18 NOT DETECTED Log IU/mL (NOT DETECTED); HEP C RNA Viral Load Quant <15 NOT DETECTED IU/mL (NOT DETECTED)
== END 2023-07-01 14:07 | disposition home or self-care (01) ==
PROVIDERS: Emergency Provider Emergency Medicine
DX: R11.11 Vomiting without nausea (principal); R16.0 Hepatomegaly, not elsewhere classified; Z11.52 Encounter for screening for COVID-19; Z72.0 Tobacco use
CPT/HCPCS: 36415; 74177; 76705; 80053; 81001; 83690; 85025; 86705; 86706; 86709; 86803; 87086; 87340; 87426; 87522; 87804; 96374; 99285; J2405; J7030; Q9967

== ENCOUNTER 2023-12-02 18:09 | Emergency (ER) | payer MEDICAID, SELFPAY ==
[2023-12-02 18:21] VITALS: BP 149/109; PULSE 88; RESP 16; TEMP 36.6; O2SAT 95; BMI 23.5
[2023-12-02 20:01] LABS: Basophils # 0.1 10^3/uL (0.0-0.1); Eosinophils # 0.1 10^3/uL (0.0-0.8); Eosinophils % 0.9 %; Hematocrit 49.3 % (37-53); Mean Corpuscular HGB Conc 35.9 g/dL (30-55); Mean Corpuscular Hemoglobin 37.3 pg (27-33); Mean Platelet Volume 9.9 fL (7.4-10.4); Monocytes # 1.1 10^3/uL (0.2-0.9); Neutrophils # 5.31 10^3/uL (1.8-7.7); Neutrophils % 61.9 %; Nucleated Red Blood Cells % 0 %; Platelet Count 271 10^3/cmm (157-399); Red Blood Count 4.74 10^6/uL (3.85-5.65)
[2023-12-02 20:18] LABS: Alanine Aminotransferase 88 U/L (0-41); Albumin Level 4.3 g/dL (3.5-5.2); Alkaline Phosphatase 339 U/L (40-130); Anion Gap 15.2 (5-19); Aspartate Amino Transferase 147 U/L (0-40); Blood Urea Nitrogen 9 mg/dL (6-20); Calcium 9.7 mg/dL (8.5-10.5); Carbon Dioxide 32 mmol/L (22-29); Chloride 94 mmol/L (98-107); Creatinine Clr Calc Pharmacy 116.1035; Globulin 2.8 g/dL (1.3-4.6); Glomerular Filtration Rate 107.1 mL/min (90-130); Glucose 126 mg/dL (65-115); Lipase 13 U/L (13-60); Magnesium 1.7 mg/dL (1.7-2.3); Osmolality Calculated 286 mOsm/kg (285-295); Potassium 3.2 mmol/L (3.5-5.1); Sodium 138 mmol/L (136-145); Total Bilirubin 1.6 mg/dL (0.15-1.2); Total Protein 7.1 g/dL (6.6-8.7)
[2023-12-02 23:24] LABS: Urine Appearance Cloudy (CLEAR); Urine Color Other (Yellow)
[2023-12-02 23:25] LABS: Add Urine Microscopic? YES
[2023-12-02 23:26] LABS: Add Urine Culture? No; Bacteria Urine TRACE /hpf; Mucus Urine 4+ /hpf; RBC Urine 0-4 /hpf (0-2)
[2023-12-02] MEDS: lidocaine 2% viscous 15 ML, aluminum-mag hydrox-simethicon 30 ML, sucralfate oral liq 1 GM PO (23:26)
--- NOTE | 2023-12-02 23:47 | ED_ITS ---
HPI - Nausea/Vomiting/Diarrhea 2 General: Chief complaint: Nausea/Vomiting/Diarrhea Stated complaint: santiago dawkins hasnt eaten 10 days Time Seen by Provider: 12/02/23 23:03 History of Present Illness: Patient presents to the ER with complaints of nausea vomiting for the last 10 days. Patient says did not really eat or drink anything the last 10 days. Patient says he has abdominal pain in the epigastric area that radiates up into his throat. Patient says had this multiple times before but usually with 1 or 2 days here there and ever 10 days straight like it is today. Patient tried to follow-up with his primary care practitioner but since has not seen anyone and today was his first visit they sent him here for further evaluation and treatment. Review of Systems 2 General: Reports: 10 or more systems reviewed and unremarkable except in HPI and below PFSH ED 2 PFSH: Social History Smoking and tobacco/nicotine status: current every day tobacco/nicotine user cigarettes Packs smoked per day: 0.5 Alcohol intake: former Year of sobriety/quit date alcohol: 2018 Substance/Drug Use: former Date of last use: hx of meth; 2018 Current gender identity: Male Physical Exam 2 Const: COMMON NORMALS: no acute distress, average body habitus, patient oriented x3, no limitations, healthy appearing, alert and well nourished HENMT: COMMON NORMALS: normocephalic, atraumatic, hearing grossly normal bilaterally, external ears normal, Normal external nose present and moist oral mucous membranes HEAD & SCALP: normocephalic and atraumatic NOSE: Normal external nose present EXTERNAL EAR: Yes external ears normal Neck/C-Spine: COMMON NORMALS: no JVD Chest: COMMONS NORMALS: normal inspection of the chest and normal palpation of entire chest wall Resp: COMMON NORMALS: normal respiratory effort, No retractions, No use of accessory muscles and clear to auscultation bilaterally AUSCULTATION: clear to auscultation bilaterally Cardio: COMMON NORMALS: no JVD, regular rate, regular rhythm, S1 normal heart sound present, S2 normal heart sound present, No gallops present (Cardio), No clicks present (Cardio), No murmurs present (Cardio) and No rub (Cardio) R ATE: regular rate RHYTHM: regular rhythm HEART SOUNDS: S1 normal heart sound present and S2 normal heart sound present GI: COMMON NORMALS: Normal to inspection, nondistended, normoactive bowel sounds present, Soft to palpation, No hepatosplenomegaly present and no masses; negative for non-tender (Tender to palpate over epigastric area reproduces pain) PALPATION: Yes Soft to palpation and Yes No hepatosplenomegaly present Neuro: COMMON NORMALS: patient oriented x3 SENSORIUM/ORIENTATION: Yes alert Course 2 Vital Signs: Vital signs: Vital Signs Temperature 97.9 F 12/02/23 18:21 Pulse Rate 88 12/02/23 18:21 Respiratory Rate 16 12/02/23 18:21 Blood Pressure 149/109 12/02/23 18:21 Pulse Oximetry 95 12/02/23 18:21 Oxygen Delivery Me thod Room Air 12/02/23 18:21 MDM - Nausea/Vomiting/Diarrhea Medical Decision Making Patient lab work included CBC CMP lipase, urinalysis, this showed patient's potassium 3.2, total bilirubin 1.6, AST 147, ALT 88, alk phos 339, all of patient's liver enzymes are improved since his last visit here in the ER. Patient is given a GI cocktail which he said helped a lot. Patient will have his potassium replaced as well as be put on a Pepcid and is to follow-up with his PCP for further evaluation and treatment. Differential Diagnosis Unlikely traveler's diarrhea, food poisoning, gastroenteritis, clostridium difficile infection, drug-induced nausea and vomiting or dehydration Medical Records I reviewed the patient's medical records. Lab Data I reviewed the patient's lab results. 12/02/23 19:55 12/02/23 19:55 Laboratory Results WBC 8.60 10^3/uL (3.29-11.43) 12/02/23 19:55 RBC 4.74 10^6/uL (3.85-5.65) 12/02/23 19:55 Hgb 17.70 g/dL (11.27-16.99) H 12/02/23 19:55 Hct 49.3 % (37-53) 12/02/23 19:55 MCV 104.0 fl (82-101) H 12/02/23 19:55 MCH 37.3 pg (27-33) H 12/02/23 19:55 MCHC 35.9 g/dL (30-55) 12/02/23 19:55 RDW 12.0 % (12.1-15.1) L 12/02/23 19:55 Plt Count 271 10^3/cmm (157-399) 12/02/23 19:55 MPV 9.9 fL (7.4-10.4) 12/02/23 19:55 Neut % (Auto) 61.9 % 12/02/23 19:55 Lymph % (Auto) 23.0 % 12/02/23 19:55 [place] % (Auto) 13.0 % 12/02/23 19:55 Eos % (Auto) 0.9 % 12/02/23 19:55 Baso % (Auto) 1.0 % 12/02/23 19:55 Neut # (Auto) 5.31 10^3/uL (1.8-7.7) 12/02/23 19:55 Lymph # (Auto) 2.0 10^3/uL (0.8-4.8) 12/02/23 19:55 [place] # (Auto) 1.1 10^3/uL (0.2-0.9) H 12/02/23 19:55 Eos # (Auto) 0.1 10^3/uL (0.0-0.8) 12/02/23 19:55 Baso # (Auto) 0.1 10^3/uL (0.0-0.1) 12/02/23 19:55 Nucleated RBC % (auto) 0 % 12/02/23 19:55 Nucleated RBCs # 0.0 /100WBC 12/02/23 19:55 Sodium 138 mmol/L (136-145) 12/02/23 19:55 Potassium 3.2 mmol/L (3.5-5.1) L 12/02/23 19:55 Chloride 94 mmol/L (98-107) L 12/02/23 19:55 Carbon Dioxide 32 mmol/L (22-29) H 12/02/23 19:55 Anion Gap 15.2 (5-19) 12/02/23 19:55 BUN 9 mg/dL (6-20) 12/02/23 19:55 Creatinine 0.8 mg/dL (0.7-1.2) 12/02/23 19:55 GFR Calculation 107.1 mL/min (90-130) 12/02/23 19:55 Glucose 126 mg/dL (65-115) H 12/02/23 19:55 Calculated Osmolality 286 mOsm/kg (285-295) 12/02/23 19:55 Calcium 9.7 mg/dL (8.5-10.5) 12/02/23 19:55 Magnesium 1.7 mg/dL (1.7-2.3) 12/02/23 19:55 Total Bilirubin 1.6 mg/dL (0.15-1.2) H 12/02/23 19:55 AST 147 U/L (0-40) H 12/02/23 19:55 ALT 88 U/L (0-41) H 12/02/23 19:55 Alkaline Phosphatase 339 U/L (40-130) H 12/02/23 19:55 Total Protein 7.1 g/dL (6.6-8.7) 12/02/23 19:55 Albumin 4.3 g/dL (3.5-5.2) 12/02/23 19:55 Globulin 2.8 g/dL (1.3-4.6) 12/02/23 19:55 Lipase 13 U/L (13-60) 12/02/23 19:55 Urine Color Other (Yellow) A 12/02/23 23:00 Urine Appearance Cloudy (CLEAR) A 12/02/23 23:00 Urine pH TNP 12/02/23 23:00 Ur Specific [place] TNP 12/02/23 23:00 Urine Protein TNP 12/02/23 23:00 Urine Glucose (UA) TNP 12/02/23 23:00 Urine Ketones TNP 12/02/23 23:00 Urine Blood TNP 12/02/23 23:00 Urine Nitrate TNP 12/02/23 23:00 Urine Bilirubin TNP 12/02/23 23:00 Urine Urobilinogen TNP 12/02/23 23:00 Ur Leukocyte Esterase TNP 12/02/23 23:00 Urine RBC 0-4 /hpf (0-2) H 12/02/23 23:00 Urine WBC 5-10 /hpf (0-5) H 12/02/23 23:00 Ur Squamous Epith Cells None /hpf (0-5) 12/02/23 23:00 Amorphous Sediment Not Reportable 12/02/23 23:00 Urine Bacteria Trace /hpf (NONE) 12/02/23 23:00 Urine Mucus 4+ /hpf 12/02/23 23:00 All radiology interpretation(s) finalized by discharge Discharge Plan Discharge Patient Disposition: Home Clinical Impression: Acute hypokalemia Gastritis Qualifiers: Gastritis type: unspecified gastritis Chronicity: acute Gastritis bleeding: w ithout bleeding Qualified Code(s): K29.00 - Acute gastritis without bleeding Nausea & vomiting Qualifiers: Vomiting type: unspecified Qualified Code(s): R11.2 - Nausea with vomiting, unspecified Condition: Stable Prescriptions: New ondansetron HCl 4 mg tablet 4 mg PO Q8H PRN (Reason: nausea and vomiting) Qty: 14 0RF famotidine [Pepcid] 40 mg tablet 40 mg PO BID Qty: 30 0RF potassium chloride 20 mEq tablet extended release 20 meq PO DAILY Qty: 7 0RF No Action ondansetron 4 mg tablet,disintegrating 4 mg PO Q6H PRN (Reason: nausea and vomiting) Qty: 14 0RF Discharge Orders: Discharge ED (Routine); Ordered 12/03/23 Ordered By: Bari Uriostegui Referrals: Jamia Hector, [employer] [Primary Care Provider] - 1 week Patient Instructions: Gastritis (DC), Hypokalemia (ED) Activity Restrictions/Additional Instructions: Your evaluation ER showed your potassium was low. You will be given a prescription for potassium replacement as well as a stomach pill and nausea pill please take all medicine as directed. Please follow-up with your family practice physician in the next 7 days for further evaluation and treatment. Coding Level of Care Code ED Event Mgr for Shanon Perez
== END 2023-12-03 00:22 | disposition home or self-care (01) ==
PROVIDERS: Emergency Provider Emergency Medicine; PCP Nurse Practitioner
DX: K29.00 Acute gastritis without bleeding (principal); E87.6 Hypokalemia; R11.2 Nausea with vomiting, unspecified; F17.210 Nicotine dependence, cigarettes, uncomplicated
CPT/HCPCS: 36415; 80053; 81001; 83690; 83735; 85025; 99283

== ENCOUNTER 2023-12-17 09:54 | Outpatient (CLI) | payer MEDICAID, SELFPAY ==
--- NOTE | 2023-12-17 10:00 | US_ITS ---
WS: [id number] RIGHT UPPER QUADRANT ULTRASOUND HISTORY: ELEVATED BILIRUBIN/HEPATOMEGALY COMPARISON: 07/01/2023 Liver: 19.5 cm in length. Moderately enlarged liver with diffuse increased echogenicity and heterogen eity. The entire liver not well imaged. No mass or bile duct dilatation. Portal Vein: Normal hepatopetal flow with monophasic waveform. Gallbladder: Normally distended gallbladder. There is small amount of sludge in the gallbladder. No s tones or wall thickening. Similar to the prior study. CBD: 0.3 cm Pancreas: Poorly visualized. Right kidney: 9.9 cm in length. Normal size and echogenicity. No hydronephrosis or mass. Aorta and IVC: Unremarkable abdominal aorta and IVC. No ascites. US/US gall bladder [id number] IMPRESSION: 1. Limited quality RIGHT upper quadrant ultrasound. 2. No cholelithiasis. There is a small amount of sludge within the gallbladder . No wall thickening or evidence for acute cholecystitis. 3. Normal common bile duct. 4. Moderate hepatomegaly with hepatic steatosis.
== END 2023-12-17 09:55 | disposition home or self-care (01) ==
LOC: RAD 09:54
PROVIDERS: PCP Nurse Practitioner; Visit Provider Nurse Practitioner
DX: R16.0 Hepatomegaly, not elsewhere classified (principal); K76.0 Fatty (change of) liver, not elsewhere classified
CPT/HCPCS: 76705

== ENCOUNTER 2024-01-09 17:37 | Emergency (ER) | payer MEDICAID, SELFPAY ==
[2024-01-09 17:41] VITALS: BP 175/102; PULSE 111; RESP 20; TEMP 36.6; O2SAT 98; BMI 28.1
--- NOTE | 2024-01-09 17:52 | CTR_ITS ---
PROCEDURE INFORMATION: Exam: CT Abdomen And Pelvis Without Contrast Exam date and time: 01/09/2024 6:20 PM Age: 38 years old Clinical indication: Abdominal pain; Patient HX: C/O left flank pain; Additional info: L flank pain TECHNIQUE: Imaging protocol: Computed tomography of the abdomen and pelvis without contrast. Axial, coronal and sagittal reformatted images were created and reviewed. Radiation optimization: All CT scans at this facility use at least one of these dose optimization techniques: automated exposure control; mA and/or kV adjustment per patient size (includes targeted exams where dose is matched to clinical indication); or iterative reconstruction. COMPARISON: CT abdomen pelvis w con* [id number] 07/01/2023 1:10 PM RADIATION DOSE METRICS: Total DLP (mGy-cm): 529.46 FINDINGS: Liver: Mild hepatomegaly. Diffuse hepatic steatosis. Gallbladder and biliary ducts: Mild gallbladder distension without radiodense gallstones. Pancreas: Unremarkable. Spleen: Unremarkable. Adrenal glands: Normal. No mass. Kidneys and ureters: Mild left-sided hydronephrosis and perinephric stranding, secondary to a 7 mm calculus in the left renal pelvis (axial image 85 and coronal image 74). Nonobstructing bilateral renal calculi. Stomach and bowel: No bowel wall thickening. No obstruction. No pneumatosis. Appendix: Normal. Intraperitoneal space: No free fluid. No organized fluid collection. No free air. Vasculature: Unremarkable. No aneurysm. Lymph nodes: No pathologically enlarged lymph nodes. Urinary bladder: Decompressed urinary bladder, which limits evaluation for wall thickening. Reproductive: Unremarkable. Bones/joints: No acute osseous abnormality. Osteopenia. Degenerative changes. Soft tissues: Small, fat containing umbilical and left inguinal hernias. CT/CT kidney stone [id number] IMPRESSION: 1. Mild left-sided hydronephrosis and perinephric stranding, secondary to a 7 mm calculus in the left renal pelvis. 2. Additional findings, as above.
[2024-01-09 18:26] LABS: Basophils # 0.1 10^3/uL (0.0-0.1); Eosinophils % 0.1 %; Hematocrit 52.3 % (37-53); Lymphocytes # 1.4 10^3/uL (0.8-4.8); Lymphocytes % 11.4 %; Mean Corpuscular HGB Conc 35.4 g/dL (30-55); Mean Corpuscular Hemoglobin 36.7 pg (27-33); Mean Corpuscular Volume 103.8 fl (82-101); Mean Platelet Volume 9.7 fL (7.4-10.4); Monocytes # 1.1 10^3/uL (0.2-0.9); Monocytes % 8.6 %; Neutrophils # 9.83 10^3/uL (1.8-7.7); Neutrophils % 78.5 %; Nucleated Red Blood Cells % 0 %; Platelet Count 292 10^3/cmm (157-399); Red Blood Count 5.04 10^6/uL (3.85-5.65); Red Cell Distribution Width 13.3 % (12.1-15.1); White Blood Count 12.52 10^3/uL (3.29-11.43)
--- NOTE | 2024-01-09 18:38 | ED_ITS ---
HPI - Abdominal Pain 2 General: Chief Complaint: Abdominal Pain Stated Complaint: abd pain, vomitting Time Seen by Provider: 01/09/24 18:24 History of Present Illness: Patient presents to the ER is having left flank pain that radiates down to his left lower quadrant and down to his left testicle. Started this morning. Patient is having nausea vomiting. Patient has no history of kidney stones. Patient is had no fever chills cough cold sore throats. Review of Systems 2 General: Reports: 10 or more systems reviewed and unremarkable except in HPI and below PFSH ED 2 PFSH: Social History Smoking and tobacco/nicotine status: current every day tobacco/nicotine user cigarettes Packs smoked per day: 0.5 Alcohol intake: former Year of sobriety/quit date alcohol: 2017 Substance/Drug Use: former Date of last use: hx of meth; 2018 Current gender identity: Male Physical Exam 2 Const: COMMON NORMALS: no acute distress, average body habitus, patient oriented x3, no limitations, healthy appearing, alert and well nourished HENMT: COMMON NORMALS: normocephalic, atraumatic, hearing grossly normal bilaterally, Normal external nose present and moist oral mucous membranes H EAD & SCALP: normocephalic and atraumatic NOSE: Normal external nose present Neck/C-Spine: COMMON NORMALS: no JVD Chest: COMMONS NORMALS: normal inspection of the chest and normal palpation of entire chest wall Resp: COMMON NORMALS: normal respiratory effort, No retractions, No use of accessory muscles and clear to auscultation bilaterally AUSCULTATION: clear to auscultation bilaterally Cardio: COMMON NORMALS: no JVD, regular rate, regular rhythm, S1 normal heart sound present, S2 normal heart sound present, No gallops present (Cardio), No clicks present (Cardio), No murmurs present (Cardio) and No rub (Cardio) R ATE: regular rate RHYTHM: regular rhythm HEART SOUNDS: S1 normal heart sound present and S2 normal heart sound present GI: COMMON NORMALS: Normal to inspection, nondistended, normoactive bowel sounds present, Soft to palpation, non-tender, No hepatosplenomegaly present and no masses PALPATION: Yes Soft to palpation and Yes No hepatosplenomegaly present Neuro: COMMON NORMALS: patient oriented x3 SENSORIUM/ORIENTATION: Yes alert Course 2 Vital Signs: Vital signs: Vital Signs Temperature 97.8 F 01/09/24 17:41 Pulse Rate 115 H 01/09/24 20:01 Respiratory Rate 18 01/09/24 20:01 Blood Pressure 169/129 01/09/24 20:01 Pulse Oximetry 99 01/09/24 20:01 Oxygen Delivery Me thod Room Air 01/09/24 20:01 MDM - Abdominal Pain Medical Decision Making Patient was given 30 mg Toradol, 4 mg Zofran, 1 L bolus normal saline tolerating lab work to come back. Lab work showed white count 12.5 urinalysis that be positive for infection, CT scan showed mild left-sided hydro with a 7 mm calculus in the renal pelvis, patient was given 4 mg morphine, 500 mg Cipro, patient be discharged on hydrocodone and Cipro and be referred to urologist. Differential Diagnosis Likely abdominal pain and calculus of kidney; Unlikely acute appendicitis, constipation, diverticulitis, endometriosis, gastroenteritis, pancreatitis or small bowel obstruction Medical Records I reviewed the patient's medical records. Lab Data I reviewed the patient's lab results. 01/09/24 18:06 01/09/24 18:06 Labs/Radiology: Radiology Impressions Abdomen/Pelvis CT 01/09/24 17:52 IMPRESSION: 1. Mild left-sided hydronephrosis and perinephric stranding, secondary to a 7 mm calculus in the left renal pelvis. 2. Additional findings, as above. Laboratory Results WBC 12.52 10^3/uL (3.29-11.43) H 01/09/24 18:06 RBC 5.04 10^6/uL (3.85-5.65) 01/09/24 18:06 Hgb 18.50 g/dL (11.27-16.99) H 01/09/24 18:06 Hct 52.3 % (37-53) 01/09/24 18:06 MCV 103.8 fl (82-101) H 01/09/24 18:06 MCH 36.7 pg (27-33) H 01/09/24 18:06 MCHC 35.4 g/dL (30-55) 01/09/24 18:06 RDW 13.3 % (12.1-15.1) 01/09/24 18:06 Plt Count 292 10^3/cmm (157-399) 01/09/24 18:06 MPV 9.7 fL (7.4-10.4) 01/09/24 18:06 Neut % (Auto) 78.5 % 01/09/24 18:06 Lymph % (Auto) 11.4 % 01/09/24 18:06 [place] % (Auto) 8.6 % 01/09/24 18:06 Eos % (Auto) 0.1 % 01/09/24 18:06 Baso % (Auto) 1.0 % 01/09/24 18:06 Neut # (Auto) 9.83 10^3/uL (1.8-7.7) H 01/09/24 18:06 Lymph # (Auto) 1.4 10^3/uL (0.8-4.8) 01/09/24 18:06 [place] # (Auto) 1.1 10^3/uL (0.2-0.9) H 01/09/24 18:06 Eos # (Auto) 0.0 10^3/uL (0.0-0.8) 01/09/24 18:06 Baso # (Auto) 0.1 10^3/uL (0.0-0.1) 01/09/24 18:06 Nucleated RBC % (auto) 0 % 01/09/24 18:06 Nucleated RBCs # 0.0 /100WBC 01/09/24 18:06 Sodium 140 mmol/L (136-145) 01/09/24 18:06 Potassium 3.9 mmol/L (3.5-5.1) 01/09/24 18:06 Chloride 99 mmol/L (98-107) 01/09/24 18:06 Carbon Dioxide 23 mmol/L (22-29) 01/09/24 18:06 Anion Gap 21.9 (5-19) H 01/09/24 18:06 BUN 6 mg/dL (6-20) 01/09/24 18:06 Creatinine 0.7 mg/dL (0.7-1.2) 01/09/24 18:06 GFR Calculation 124.9 mL/min (90-130) 01/09/24 18:06 Glucose 135 mg/dL (65-115) H 01/09/24 18:06 Calculated Osmolality 290 mOsm/kg (285-295) 01/09/24 18:06 Calcium 9.7 mg/dL (8.5-10.5) 01/09/24 18:06 Total Bilirubin 0.7 mg/dL (0.15-1.2) 01/09/24 18:06 AST 106 U/L (0-40) H 01/09/24 18:06 ALT 54 U/L (0-41) H 01/09/24 18:06 Alkaline Phosphatase 336 U/L (40-130) H 01/09/24 18:06 C-Reactive Protein 3.0 mg/L (0.0-4.9) 01/09/24 18:06 Total Protein 7.1 g/dL (6.6-8.7) 01/09/24 18: Albumin 4.4 g/dL (3.5-5.2) 01/09/24 18:06 Globulin 2.7 g/dL (1.3-4.6) 01/09/24 18:06 Urine Color Dark yellow (Yellow) A 01/09/24 18:02 Urine Appearance Cloudy (CLEAR) A 01/09/24 18:02 Urine pH 8 (5-7) H 01/09/24 18:02 Ur Specific [place] 1.015 (1.005-1.030) 01/09/24 18:02 Urine Protein 2+ (Negative) H 01/09/24 18:02 Urine Glucose (UA) Norm (Normal) 01/09/24 18:02 Urine Ketones 1+ (Negative) H 01/09/24 18:02 Urine Blood 3+ (Negative) H 01/09/24 18:02 Urine Nitrate Negative (Negative) 01/09/24 18: Urine Bilirubin 1+ (Negative) H 01/09/24 18:02 Urine Urobilinogen 4 mg/dL (Negative) H 01/09/24 18:02 Ur Leukocyte Esterase 1+ (Negative) H 01/09/24 18:02 Urine RBC 80-100 /hpf (0-2) H 01/09/24 18:02 Urine WBC 15-25 /hpf (0-5) H 01/09/24 18:02 Ur Squamous Epith Cells 0-4 /hpf (0-5) H 01/09/24 18:02 Amorphous Sediment Not Reportable 01/09/24 18:02 Urine Bacteria 1+ /hpf (NONE) H 01/09/24 18:02 Urine Mucus 2+ /hpf 01/09/24 18:02 All radiology interpretation(s) finalized by discharge Discharge Plan Discharge Patient Disposition: Home Clinical Impression: Bilateral kidney stones Urinary tract infection Qualifiers: Urinary tract infection type: acute cystitis Hematuria presence: with hematuria Qualified Code(s): N30.01 - Acute cystitis with hematuria Condition: Stable Prescriptions: New hydrocodone-acetaminophen 5-325 mg tablet 1 tab PO Q6H PRN (Reason: pain) Qty: 14 0RF ondansetron HCl 4 mg tablet 4 mg PO Q8H PRN (Reason: nausea and vomiting) Qty: 14 0RF ketorolac 10 mg tablet 10 mg PO Q6H PRN (Reason: Kidney stone pain) Qty: 14 0RF ciprofloxacin HCl 500 mg tablet 500 mg PO Q12H Qty: 20 0RF Discontinued ondansetron 4 mg tablet,disintegrating 4 mg PO Q6H PRN (Reason: nausea and vomiting) Qty: 14 0RF ondansetron HCl 4 mg tablet 4 mg PO Q8H PRN (Reason: nausea and vomiting) Qty: 14 0RF No Action Pepcid 40 mg tablet 40 mg PO BID Qty: 30 0RF potassium chloride 20 mEq tablet extended release 20 meq PO DAILY Qty: 7 0RF Discharge Orders: Discharge ED (Routine); Ordered 01/09/24 Ordered By: Bari Uriostegui Referrals: Jamia Hector, [facility] REPAIRER [Primary Care Provider] - 1 week Patient Instructions: Kidney Stones, Opioid Safety, Pain Management, Urinary Tract Infection - Men Activity Restrictions/Additional Instructions: Your evaluation in ER showed you have multiple kidney stones in both kidneys, the largest being 7 mm,. It also showed you have a urinary tract infection and goes along with this. You have been prescribed pain medicine and antibiotics take all medicine as prescribed. You have also been referred to case management to get an appointment with the urologist in [facility]. They should be calling you within the next 1-2 business days to arrange his appointment if you have not heard from them by then please feel free to call us back. Coding Level of Care Code ED [employer]ic for Shanon Perez
[2024-01-09] MEDS: sodium chloride 0.9% 1,000 ML 999 ML IV (18:49)
[2024-01-09] MEDS: ketorolac 30 mg/mL INJ IVP (18:49)
[2024-01-09] MEDS: ondansetron 2 mg/ML SDV 2 mL 8 MG IVP (18:50)
[2024-01-09 18:51] LABS: Alanine Aminotransferase 54 U/L (0-41); Albumin Level 4.4 g/dL (3.5-5.2); Alkaline Phosphatase 336 U/L (40-130); Anion Gap 21.9 (5-19); Aspartate Amino Transferase 106 U/L (0-40); Blood Urea Nitrogen 6 mg/dL (6-20); Calcium 9.7 mg/dL (8.5-10.5); Carbon Dioxide 23 mmol/L (22-29); Chloride 99 mmol/L (98-107); Creatinine Clr Calc Pharmacy 143.4897; Globulin 2.7 g/dL (1.3-4.6); Glomerular Filtration Rate 124.9 mL/min (90-130); Glucose 135 mg/dL (65-115); Osmolality Calculated 290 mOsm/kg (285-295); Potassium 3.9 mmol/L (3.5-5.1); Sodium 140 mmol/L (136-145); Total Bilirubin 0.7 mg/dL (0.15-1.2); Total Protein 7.1 g/dL (6.6-8.7)
[2024-01-09 19:46] LABS: Protein Urine 2+ (Negative); Specific Gravity, Urine 1.015 (1.005-1.030); Urine Appearance Cloudy (CLEAR); Urine Color Dark Yellow (Yellow); pH Urine 8 (5-7)
[2024-01-09 19:47] LABS: Add Urine Culture? Yes; Bacteria Urine 1+ /hpf; Bilirubin Urine 1+ (Negative); Blood Urine 3+ (Negative); Glucose Urine UA Norm (Normal); Ketones Urine 1+ (Negative); Leukocyte Esterase Urine 1+ (Negative); Mucus Urine 2+ /hpf; Nitrate Urine Negative (Negative); RBC Urine 80-100 /hpf (0-2); Squamous Epithelial Cell Urine 0-4 /hpf (0-5); Urobilinogen Urine 4 mg/dL (Negative); WBC Urine 15-25 /hpf (0-5)
[2024-01-09] MEDS: ciprofloxacin 500 mg Tablet PO (19:55)
[2024-01-09 19:56] VITALS: RESP 18; O2SAT 95
[2024-01-09] MEDS: morphine 4 mg/mL SDV 1 mL IVP (19:56)
[2024-01-09 20:01] VITALS: BP 169/129; PULSE 115; RESP 18; O2SAT 99
[2024-01-09 20:22] VITALS: BP 190/134
[2024-01-09] MEDS: cloNIDine 0.1 mg Tablet 0.2 MG PO (20:22)
--- NOTE | 2024-01-09 20:28 | PC.NURSE ---
Pt sent home with 2tabs Hydrocodone per Dr Uriostegui orders.
[2024-01-09 20:42] VITALS: BP 192/154; PULSE 98; RESP 18
== END 2024-01-09 20:45 | disposition home or self-care (01) ==
PROVIDERS: Emergency Medicine; Emergency Provider Emergency Medicine; PCP Nurse Practitioner
DX: N30.01 Acute cystitis with hematuria (principal); N13.2 Hydronephrosis with renal and ureteral calculous obstruction; F17.210 Nicotine dependence, cigarettes, uncomplicated
CPT/HCPCS: 36415; 74176; 80053; 81001; 85025; 86140; 87086; 96361; 96374; 96375; 99285; J1885; J2270; J2405; J7030

== ENCOUNTER 2024-02-19 11:31 | Emergency (ER) | payer MEDICAID, SELFPAY ==
[2024-02-19] VITALS (7 sets, daily range): BP systolic 116–183; BP diastolic 75–129; PULSE 97–123; RESP 14–19; TEMP 36.8; O2SAT 95–98
[2024-02-19 11:50] LABS: Glucose Point of Care 211 mg/dL (70-110)
--- NOTE | 2024-02-19 12:00 | W.ED.AMS ---
Documented by User: Nikita Beatty DO 02/21/24 05:56 HPI - Altered Mental Status General: Chief Complaint: Altered Mental Status Stated Complaint: leg numbess, seeing flashing lights Time Seen by Provider: 02/19/24 11:45 History of Present Illness: 38-year-old male presents to the emergency room complaining of scotomatous like vision changes. Does have a history of hypertension no recent change in his blood pressure medications from what I can find reviewing his meds the only thing he is on at this point is lisinopril. There is no recent change in his medications. He is not diabetic. He has no focal neurologic deficits the vision changes have resolved now. No recent head trauma or fall or injury. Related Data Previous Rx's Medication Instructions Recorded famotidine 40 mg tablet (Pepcid) 40 mg PO BID #30 tabs 12/03/23 potassium chloride 20 mEq 20 meq PO DAILY #7 tabs 12/03/23 tablet,extended release ciprofloxacin HCl 500 mg tablet 500 mg PO Q12H #20 tabs 01/09/24 hydrocodone 5 mg-acetaminophen 325 1 tab PO Q6H PRN pain #14 tabs 01/09/24 mg tablet ketorolac 10 mg tablet 10 mg PO Q6H PRN Kidney stone pain 01/09/24 #14 tabs ondansetron HCl 4 mg tablet 4 mg PO Q8H PRN nausea and 01/09/24 vomiting #14 tabs Allergies Allergy/AdvReac Type Severity Reaction Status Date / Time No Known Allergies Allergy Verified 01/09/24 17:44 Review of Systems Const: Denies: fever(s) or chills Card: Denies: chest pain Resp: Denies: dyspnea GI: Denies: abdominal pain : Denies: dysuria, urinary frequency or urinary urgency Musc: Denies: neck pain or back pain Skin/Breast: Denies: rash PFSH ED PFSH: Social History Smoking and tobacco/nicotine status: current every day tobacco/nicotine user cigarettes Packs smoked per day: 0.5 Alcohol intake: former Year of sobriety/quit date alcohol: 2017 Substance/Drug Use: former Date of last use: hx of meth; 2018 Current gender identity: Male Physical Exam Const: COMMON NORMALS: no acute distress GENERAL APPEARANCE: cooperative and comfortable ORIENTATION/CONSCIOUSNESS: Yes awake, Yes oriented to person, Yes oriented to place and Yes oriented to time HENMT: COMMON NORMALS: normocephalic, atraumatic and hearing grossly normal bilaterally HEAD & SCALP: normocephalic and atraumatic Resp: COMMON NORMALS: normal respiratory effort, No retractions, No use of accessory muscles and clear to auscultation bilaterally AUSCULTATION: clear to auscultation bilaterally Cardio: COMMON NORMALS: regular rate, regular rhythm and No murmurs present (Cardio) RATE: regular rate RHYTHM: regular rhythm GI: COMMON NORMALS: Soft to palpation and No hepatosplenomegaly present AUSCULTATION: Yes normoactive bowel sounds PALPATION: Yes Soft to palpation, No Tenderness to palpation present (GI), No Guarding due to palpation present (GI) and Yes No hepatosplenomegaly present Extremity: COMMON NORMALS: normal to inspection, capillary refill normal, no clubbing, cyanosis or edema, no calf tenderness and no pedal edema Neuro: SENSORIUM/ORIENTATION: Yes oriented to person, Yes oriented to place and Yes oriented to time Skin: COMMON NORMALS: no rashes or lesions noted GENERAL SKIN EXAM: no rashes or lesions noted Course Vital Signs: Vital signs: Vital Signs Temperature 98.2 F 02/19/24 11:50 Pulse Rate 81 02/20/24 19:55 Respiratory Rate 18 02/20/24 19:55 Blood Pressure 149/108 02/20/24 19:55 Pulse Oximetry 98 02/20/24 19:55 Oxygen Delivery Me thod Room Air 02/20/24 13:58 MDM - Altered Mental Status Medical Decision Making Care signed out to Dr. Ca at change of shift. See final notes for diagnosis and disposition. Patient presented with hypertension with scotomatous like changes. Had a seizure while in the emergency room also found to have an obstructive pyelonephritis. Transfer arrangements made with [facility] in [place] pending bed assignment at this time Patient presents here with kidney stone he also has a UTI patient has been stable here did attempt to transfer to [facility] first but they do not have any bed availability did speak to Dr. Zaidi at [place] and will transfer there at this time. Lab Data 02/19/24 11:54 02/19/24 11:[address] 02/19/24 12:11 IMPRESSION: No large territorial infarct or intracranial bleed. Abdomen/Pelvis CT 02/19/24 12:38 IMPRESSION: 1. A 5 mm obstructing stone in the middle 3rd of the left ureter with mild proximal left hydroureteronephrosis. 2. Severe hepatic steatosis. Laboratory Results WBC 7.90 10^3/uL (3.29-11.43) 02/19/24 11:54 RBC 5.22 10^6/uL (3.85-5.65) 02/19/24 11:54 Hgb 19.80 g/dL (11.27-16.99) H 02/19/24 11:54 Hct 54.2 % (37-53) H 02/19/24 11:54 MCV 103.8 fl (82-101) H 02/19/24 11:54 MCH 37.9 pg (27-33) H 02/19/24 11:54 MCHC 36.5 g/dL (30-55) 02/19/24 11:54 RDW 13.5 % (12.1-15.1) 02/19/24 11:54 Plt Count 218 10^3/cmm (157-399) 02/19/24 11:54 MPV 10.1 fL (7.4-10.4) 02/19/24 11:54 Neut % (Auto) 72.8 % 02/19/24 11:54 Lymph % (Auto) 17.1 % 02/19/24 11:54 [place] % (Auto) 6.6 % 02/19/24 11:54 Eos % (Auto) 1.5 % 02/19/24 11:54 Baso % (Auto) 1.1 % 02/19/24 11:54 Neut # (Auto) 5.75 10^3/uL (1.8-7.7) 02/19/24 11:54 Lymph # (Auto) 1.4 10^3/uL (0.8-4.8) 02/19/24 11:54 [place] # (Auto) 0.5 10^3/uL (0.2-0.9) 02/19/24 11:54 Eos # (Auto) 0.1 10^3/uL (0.0-0.8) 02/19/24 11:54 Baso # (Auto) 0.1 10^3/uL (0.0-0.1) 02/19/24 11:54 Nucleated RBC % (auto) 0.3 % 02/19/24 11:54 Nucleated RBCs # 0.0 /100WBC 02/19/24 11:54 Sodium 135 mmol/L (136-145) L 02/19/24 11:54 Potassium 3.7 mmol/L (3.5-5.1) 02/19/24 11:54 Chloride 95 mmol/L (98-107) L 02/19/24 11:54 Carbon Dioxide 24 mmol/L (22-29) 02/19/24 11:54 Anion Gap 19.7 (5-19) H 02/19/24 11:54 BUN 7 mg/dL (6-20) 02/19/24 11:54 Creatinine 1.0 mg/dL (0.7-1.2) 02/19/24 11:54 GFR Calculation 82.8 mL/min (90-130) L 02/19/24 11:54 Glucose 184 mg/dL (65-115) H 02/19/24 11:54 POC Glucose 211 mg/dL (70-110) H 02/19/24 11:48 Calculated Osmolality 283 mOsm/kg (285-295) L 02/19/24 11:54 Lactic Acid 1.4 mmol/L (0.5-2.2) 02/19/24 15:31 Calcium 9.5 mg/dL (8.5-10.5) 02/19/24 11:54 Total Bilirubin 2.5 mg/dL (0.15-1.2) H 02/19/24 11:54 AST 192 U/L (0-40) H 02/19/24 11:54 ALT 72 U/L (0-41) H 02/19/24 11:54 Alkaline Phosphatase 372 U/L (40-130) H 02/19/24 11:54 Ammonia 56 umol/L (16-60) 02/19/24 13:46 Total Protein 7.5 g/dL (6.6-8.7) 02/19/24 11:54 Albumin 4.2 g/dL (3.5-5.2) 02/19/24 11:54 Globulin 3.3 g/dL (1.3-4.6) 02/19/24 11:54 Urine Color [place] (Yellow) A 02/19/24 12:19 Urine Appearance Turbid (CLEAR) A 02/19/24 12:19 Urine pH 5.5 (5-7) 02/19/24 12:19 Ur Specific [place] 1.031 (1.005-1.030) H 02/19/24 12:19 Urine Protein 3+ (Negative) A 02/19/24 12:19 Urine Glucose (UA) Trace (Normal) H 02/19/24 12:19 Urine Ketones Negative (Negative) 02/19/24 12:19 Urine Blood Trace (Negative) A 02/19/24 12:19 Urine Nitrate Positive (Negative) A 02/19/24 12:19 Urine Bilirubin 2+ (Negative) H 02/19/24 12:19 Urine Urobilinogen 1.0 mg/dL (Negative) 02/19/24 12:19 Ur Leukocyte Esterase 1+ (Negative) A 02/19/24 12:19 Urine RBC 5-10 /hpf (0-2) H 02/19/24 12:19 Urine WBC 15-25 /hpf (0-5) H 02/19/24 12:19 Ur Squamous Epith Cells None /hpf (0-5) 02/19/24 12:19 Amorphous Sediment Not Reportable 02/19/24 12:19 Urine Bacteria 2+ /hpf (NONE) H 02/19/24 12:19 Hyaline Casts 15-25 /lpf H 02/19/24 12:19 Urine Mucus 2+ /hpf 02/19/24 12:19 Urine Sperm 1+ /hpf 02/19/24 12:19 Urine Opiates Screen Negative ng/mL (Negative) 02/19/24 12:19 Ur Barbiturates Screen Negative ng/mL (Negative) 02/19/24 12:19 Ur Phencyclidine Scrn Negative ng/mL (Negative) 02/19/24 12:19 Ur Amphetamines Screen Negative ng/mL (Negative) 02/19/24 12:19 U Benzodiazepines Scrn Negative ng/mL (Negative) 02/19/24 12:19 Urine Cocaine Screen Negative ng/mL (Negative) 02/19/24 12:19 U Marijuana (THC) Screen Positive ng/mL (Negative) H 02/19/24 12:19 Ethyl Alcohol < 10 mg/dL (0-10) 02/19/24 11:54 Discharge Plan Discharge Patient Disposition: Admitted As Inpatient Clinical Impression: Kidney stone, Acute cystitis, Alcohol abuse, New onset seizure, Hypertension Condition: Stable Coding Level of Care Code ED Kiln Charger for Shanon Perez Documented by User: Naomi Camacho MD 02/20/24 17:21 HPI - Altered Mental Status General: Chief Complaint: Altered Mental Status Stated Complaint: leg numbess, seeing flashing lights Time Seen by Provider: 02/19/24 11:45 Related Data Previous Rx's Medication Instructions Recorded famotidine 40 mg tablet (Pepcid) 40 mg PO BID #30 tabs 12/03/23 potassium chloride 20 mEq 20 meq PO DAILY #7 tabs 12/03/23 tablet,extended release ciprofloxacin HCl 500 mg tablet 500 mg PO Q12H #20 tabs 01/09/24 hydrocodone 5 mg-acetaminophen 325 1 tab PO Q6H PRN pain #14 tabs 01/09/24 mg tablet ketorolac 10 mg tablet 10 mg PO Q6H PRN Kidney stone pain 01/09/24 #14 tabs ondansetron HCl 4 mg tablet 4 mg PO Q8H PRN nausea and 01/09/24 vomiting #14 tabs Allergies Allergy/AdvReac Type Severity Reaction Status Date / Time No Known Allergies Allergy Verified 01/09/24 17:44 PFSH ED PFSH: Social History Smoking and tobacco/nicotine status: current every day tobacco/nicotine user cigarettes Packs smoked per day: 0.5 Alcohol intake: former Year of sobriety/quit date alcohol: 2018 Substance/Drug Use: former Date of last use: hx of meth; 2018 Current gender identity: Male Course Vital Signs: Vital signs: Vital Signs Temperature 98.2 F 02/19/24 11:50 Pulse Rate 81 02/20/24 19:55 Respiratory Rate 18 02/20/24 19:55 Blood Pressure 149/108 02/20/24 19:55 Pulse Oximetry 98 02/20/24 19:55 Oxygen Delivery Me thod Room Air 02/20/24 13:58 MDM - Altered Mental Status Medical Decision Making Patient presents here with kidney stone he also has a UTI patient has been stable here did attempt to transfer to [facility] but they do not have any bed availability did speak to Dr. Zaidi at [facility] and will transfer there at this time. Medical Records I reviewed the patient's medical records. Lab Data I reviewed the patient's lab results. 02/19/24 11:54 02/19/24 11:[address] 02/19/24 12:11 IMPRESSION: No large territorial infarct or intracranial bleed. Abdomen/Pelvis CT 02/19/24 12:38 IMPRESSION: 1. A 5 mm obstructing stone in the middle 3rd of the left ureter with mild proximal left hydroureteronephrosis. 2. Severe hepatic steatosis. Laboratory Results WBC 7.90 10^3/uL (3.29-11.43) 02/19/24 11:54 RBC 5.22 10^6/uL (3.85-5.65) 02/19/24 11:54 Hgb 19.80 g/dL (11.27-16.99) H 02/19/24 11:54 Hct 54.2 % (37-53) H 02/19/24 11:54 MCV 103.8 fl (82-101) H 02/19/24 11:54 MCH 37.9 pg (27-33) H 02/19/24 11:54 MCHC 36.5 g/dL (30-55) 02/19/24 11:54 RDW 13.5 % (12.1-15.1) 02/19/24 11:54 Plt Count 218 10^3/cmm (157-399) 02/19/24 11:54 MPV 10.1 fL (7.4-10.4) 02/19/24 11:54 Neut % (Auto) 72.8 % 02/19/24 11:54 Lymph % (Auto) 17.1 % 02/19/24 11:54 [place] % (Auto) 6.6 % 02/19/24 11:54 Eos % (Auto) 1.5 % 02/19/24 11:54 Baso % (Auto) 1.1 % 02/19/24 11:54 Neut # (Auto) 5.75 10^3/uL (1.8-7.7) 02/19/24 11:54 Lymph # (Auto) 1.4 10^3/uL (0.8-4.8) 02/19/24 11:54 [place] # (Auto) 0.5 10^3/uL (0.2-0.9) 02/19/24 11:54 Eos # (Auto) 0.1 10^3/uL (0.0-0.8) 02/19/24 11:54 Baso # (Auto) 0.1 10^3/uL (0.0-0.1) 02/19/24 11:54 Nucleated RBC % (auto) 0.3 % 02/19/24 11:54 Nucleated RBCs # 0.0 /100WBC 02/19/24 11:54 Sodium 135 mmol/L (136-145) L 02/19/24 11:54 Potassium 3.7 mmol/L (3.5-5.1) 02/19/24 11:54 Chloride 95 mmol/L (98-107) L 02/19/24 11:54 Carbon Dioxide 24 mmol/L (22-29) 02/19/24 11:54 Anion Gap 19.7 (5-19) H 02/19/24 11:54 BUN 7 mg/dL (6-20) 02/19/24 11:54 Creatinine 1.0 mg/dL (0.7-1.2) 02/19/24 11:54 GFR Calculation 82.8 mL/min (90-130) L 02/19/24 11:54 Glucose 184 mg/dL (65-115) H 02/19/24 11:54 POC Glucose 211 mg/dL (70-110) H 02/19/24 11:48 Calculated Osmolality 283 mOsm/kg (285-295) L 02/19/24 11:54 Lactic Acid 1.4 mmol/L (0.5-2.2) 02/19/24 15:31 Calcium 9.5 mg/dL (8.5-10.5) 02/19/24 11:54 Total Bilirubin 2.5 mg/dL (0.15-1.2) H 02/19/24 11:54 AST 192 U/L (0-40) H 02/19/24 11:54 ALT 72 U/L (0-41) H 02/19/24 11:54 Alkaline Phosphatase 372 U/L (40-130) H 02/19/24 11:54 Ammonia 56 umol/L (16-60) 02/19/24 13:46 Total Protein 7.5 g/dL (6.6-8.7) 02/19/24 11:54 Albumin 4.2 g/dL (3.5-5.2) 02/19/24 11:54 Globulin 3.3 g/dL (1.3-4.6) 02/19/24 11:54 Urine Color [place] (Yellow) A 02/19/24 12:19 Urine Appearance Turbid (CLEAR) A 02/19/24 12:19 Urine pH 5.5 (5-7) 02/19/24 12:19 Ur Specific [place] 1.031 (1.005-1.030) H 02/19/24 12:19 Urine Protein 3+ (Negative) A 02/19/24 12:19 Urine Glucose (UA) Trace (Normal) H 02/19/24 12:19 Urine Ketones Negative (Negative) 02/19/24 12:19 Urine Blood Trace (Negative) A 02/19/24 12:19 Urine Nitrate Positive (Negative) A 02/19/24 12:19 Urine Bilirubin 2+ (Negative) H 02/19/24 12:19 Urine Urobilinogen 1.0 mg/dL (Negative) 02/19/24 12:19 Ur Leukocyte Esterase 1+ (Negative) A 02/19/24 12:19 Urine RBC 5-10 /hpf (0-2) H 02/19/24 12:19 Urine WBC 15-25 /hpf (0-5) H 02/19/24 12:19 Ur Squamous Epith Cells None /hpf (0-5) 02/19/24 12:19 Amorphous Sediment Not Reportable 02/19/24 12:19 Urine Bacteria 2+ /hpf (NONE) H 02/19/24 12:19 Hyaline Casts 15-25 /lpf H 02/19/24 12:19 Urine Mucus 2+ /hpf 02/19/24 12:19 Urine Sperm 1+ /hpf 02/19/24 12:19 Urine Opiates Screen Negative ng/mL (Negative) 02/19/24 12:19 Ur Barbiturates Screen Negative ng/mL (Negative) 02/19/24 12:19 Ur Phencyclidine Scrn Negative ng/mL (Negative) 02/19/24 12:19 Ur Amphetamines Screen Negative ng/mL (Negative) 02/19/24 12:19 U Benzodiazepines Scrn Negative ng/mL (Negative) 02/19/24 12:19 Urine Cocaine Screen Negative ng/mL (Negative) 02/19/24 12:19 U Marijuana (THC) Screen Positive ng/mL (Negative) H 02/19/24 12:19 Ethyl Alcohol < 10 mg/dL (0-10) 02/19/24 11:54 All radiology interpretation(s) finalized by discharge Discharge Plan Discharge Patient Disposition: Admitted As Inpatient Clinical Impression: Kidney stone, Acute cystitis, Alcohol abuse, New onset seizure, Hypertension Condition: Stable Coding Level of Care Code ED Kiln Charger for Shanon Perez
[2024-02-19 12:05] LABS: Basophils # 0.1 10^3/uL (0.0-0.1); Basophils % 1.1 %; Eosinophils # 0.1 10^3/uL (0.0-0.8); Eosinophils % 1.5 %; Hematocrit 54.2 % (37-53); Lymphocytes # 1.4 10^3/uL (0.8-4.8); Lymphocytes % 17.1 %; Mean Corpuscular HGB Conc 36.5 g/dL (30-55); Mean Corpuscular Hemoglobin 37.9 pg (27-33); Mean Corpuscular Volume 103.8 fl (82-101); Mean Platelet Volume 10.1 fL (7.4-10.4); Monocytes # 0.5 10^3/uL (0.2-0.9); Monocytes % 6.6 %; Neutrophils # 5.75 10^3/uL (1.8-7.7); Neutrophils % 72.8 %; Nucleated Red Blood Cells % 0.3 %; Platelet Count 218 10^3/cmm (157-399); Red Blood Count 5.22 10^6/uL (3.85-5.65); Red Cell Distribution Width 13.5 % (12.1-15.1)
--- NOTE | 2024-02-19 12:11 | CTR_ITS ---
PROCEDURE INFORMATION: Exam: CT Head Without Contrast Exam date and time: 02/19/2024 1:27 PM Age: 38 years old Clinical indication: Altered mental status/memory loss; Additional info: [place], vison change TECHNIQUE: Imaging protocol: Computed tomography of the head without contrast. Radiation optimization: All CT scans at this facility use at least one of these dose optimization techniques: automated exposure control; mA and/or kV adjustment per patient size (includes targeted exams where dose is matched to clinical indication); or iterative reconstruction. COMPARISON: No relevant prior studies available. RADIATION DOSE METRICS: Total DLP (mGy-cm): 1620.19 FINDINGS: Brain: Normal. No hemorrhage. Unremarkable white matter. No mass effect. Cerebral ventricles: No ventriculomegaly. Paranasal sinuses: Mild mucosal disease of the left sphenoid sinus and bilateral ethmoid air cells. Mastoid air cells: Visualized mastoid air cells are well aerated. Bones: Unremarkable. No acute fracture. Soft tissues: Unremarkable. CT/CT head wo con* [id number] IMPRESSION: No large territorial infarct or intracranial bleed.
[2024-02-19 12:19] LABS: Alanine Aminotransferase 72 U/L (0-41); Albumin Level 4.2 g/dL (3.5-5.2); Alkaline Phosphatase 372 U/L (40-130); Anion Gap 19.7 (5-19); Aspartate Amino Transferase 192 U/L (0-40); Blood Urea Nitrogen 7 mg/dL (6-20); Calcium 9.5 mg/dL (8.5-10.5); Carbon Dioxide 24 mmol/L (22-29); Chloride 95 mmol/L (98-107); Creatinine Clr Calc Pharmacy 95.4028; Globulin 3.3 g/dL (1.3-4.6); Glomerular Filtration Rate 82.8 mL/min (90-130); Glucose 184 mg/dL (65-115); Osmolality Calculated 283 mOsm/kg (285-295); Potassium 3.7 mmol/L (3.5-5.1); Sodium 135 mmol/L (136-145); Total Bilirubin 2.5 mg/dL (0.15-1.2); Total Protein 7.5 g/dL (6.6-8.7)
[2024-02-19 12:26] LABS: Charge for UA Resulting for Rev
[2024-02-19 12:28] LABS: Bilirubin Urine 2+ (Negative); Blood Urine Trace (Negative); Glucose Urine UA Trace (Normal); Ketones Urine Negative (Negative); Leukocyte Esterase Urine 1+ (Negative); Nitrate Urine Positive (Negative); Protein Urine 3+ (Negative); Urine Appearance Turbid (CLEAR); pH Urine 5.5 (5-7)
--- NOTE | 2024-02-19 12:38 | CTR_ITS ---
PROCEDURE INFORMATION: Exam: CT Abdomen And Pelvis Without Contrast Exam date and time: 02/19/2024 1:30 PM Age: 38 years old Clinical indication: Abdominal pain; Generalized TECHNIQUE: Imaging protocol: Computed tomography of the abdomen and pelvis without contrast. Radiation optimization: All CT scans at this facility use at least one of these dose optimization techniques: automated exposure control; mA and/or kV adjustment per patient size (includes targeted exams where dose is matched to clinical indication); or iterative reconstruction. COMPARISON: CT kidney stone [id number] 01/09/2024 6:20 PM RADIATION DOSE METRICS: Total DLP (mGy-cm): 1050.41 FINDINGS: Liver: Severe hepatic steatosis. No focal hepatic lesion. Gallbladder and biliary ducts: Normal. No calcified stones. No ductal dilation. Pancreas: Normal. No ductal dilation. Spleen: Normal. No splenomegaly. Adrenal glands: Normal. No mass. Kidneys and ureters: 3 mm nonobstructing stone in the lower pole of the right kidney. 4 mm nonobstructing stone in the interpolar region of the left kidney. 2 mm nonobstructing stone in the lower pole of the left kidney. There is a nonobstructing stone in the middle 3rd of the left ureter measuring 5 mm with mild proximal left hydroureteronephrosis. Stomach and bowel: Unremarkable. No obstruction. No mucosal thickening. Appendix: No evidence of appendicitis. Intraperitoneal space: Unremarkable. No free air. No significant fluid collection. Vasculature: Unremarkable. No abdominal aortic aneurysm. Lymph nodes: Unremarkable. No enlarged lymph nodes. Urinary bladder: Unremarkable as visualized. Reproductive: Unremarkable as visualized. Bones/joints: Mild degenerative disease of both hip joints and bilateral sacroiliac joints. Mild curvature of the lumbar spine convex to the left. Posterior osteophyte disc complex at L4-L5 with mild bony canal stenosis. Soft tissues: Bilateral fat containing inguinal hernias, larger on the left side. Fat containing umbilical hernia. CT/CT abdomen pelvis wo con [id number] IMPRESSION: 1. A 5 mm obstructing stone in the middle 3rd of the left ureter with mild proximal left hydroureteronephrosis. 2. Severe hepatic steatosis.
[2024-02-19 12:40] LABS: Specific Gravity, Urine 1.031 (1.005-1.030); Urine Color Orange (Yellow)
[2024-02-19 12:41] LABS: Bacteria Urine 2+ /hpf; Hyaline Casts Urine 15-25 /lpf; Mucus Urine 2+ /hpf; Sperm Urine 1+ /hpf; UA Manual Slide Review YES; UA Slide Review UA Slide Review Perf; WBC Urine 15-25 /hpf (0-5)
[2024-02-19 12:42] LABS: Add Urine Culture? Yes
[2024-02-19] MEDS: hyDRALAzine 20 mg/mL INJ 1 mL 10 MG IVP (12:51)
[2024-02-19] MEDS: LORazepam 2 mg/mL INJ 1 mL (12:51)
[2024-02-19] MEDS: levETIRAcetam 1,000 MG/100 ML PREMIX 400 MG IV (12:58)
--- NOTE | 2024-02-19 13:06 | ECG_ITS ---
[facility] Test Date: 2024-02-19 Pat Name: Don Patel Department: Room: Gender: Male Internet Architect: : 1985 Requested By: Nikita Garcia Order Number: [id number] Gaurav MD: Clay Sanchez M.D. Measurements Intervals [place] Rate: 134 P: 63 MT: 146 QRS: 63 QRSD: 84 T: 56 QT: 300 QTc: 449 Interpretive Statements SINUS TACHYCARDIA Compared to ECG 05/21/2022 09:26:51 Sinus rhythm no longer present Sinus arrhythmia no longer present T-wave abnormality no longer present Electronically Signed On 02-19-2024 15:07:24 CDT by Clay Sanchez M.D. [id number]
[2024-02-19 13:28] LABS: Alcohol Level < 10 mg/dL (0-10)
[2024-02-19 13:59] LABS: Amphetamines Screen Urine Negative (Negative); Barbiturates Screen Urine Negative (Negative); Benzodiazepines Screen Urine Negative (Negative); Cocaine Screen Urine Negative (Negative); Opiate Screen Urine Negative (Negative); PCP Screen Urine Negative (Negative); THC Screen Urine Positive (Negative)
[2024-02-19 14:13] LABS: Ammonia 56 umol/L (16-60)
--- NOTE | 2024-02-19 14:30 | ECG_ITS ---
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 Measurements Intervals [place] Rate: 133 P: 68 SD: 132 QRS: 67 QRSD: 85 T: 60 QT: 301 QTc: 448 Interpretive Statements SINUS TACHYCARDIA INDETERMINATE AXIS Compared to ECG 02/19/2024 13:06:06 Indeterminate axis now present Electronically Signed On 02-19-2024 15:07:05 CDT by Clay Sanchez M.D. [id number]
[2024-02-19] MEDS: sodium chloride 0.9% 1,000 ML 999 ML IV (14:47)
[2024-02-19] MEDS: cefTRIAXone 1,000 mg SDV 1000 MG IVP (14:47)
[2024-02-19] MEDS: labetalol 5 mg/mL SDV 20mL 10 MG IVP ×2 (14:49→16:40)
[2024-02-19 15:58] LABS: Lactic Sepsis W/Reflex 1.4 mmol/L (0.5-2.2)
[2024-02-19] MEDS: LORazepam 2 mg/mL INJ 1 mL 1 MG IVP (16:40)
[2024-02-19] MEDS: sodium chlor 0.9% + KCl 20 mEq 20 MEQ/1,000 ML BAG 125 MEQ IV (19:14)
[2024-02-20] VITALS (8 sets, daily range): BP systolic 134–164; BP diastolic 88–110; PULSE 75–96; RESP 17–19; O2SAT 90–98
[2024-02-20] MEDS: cefTRIAXone 1,000 mg SDV 1000 MG IVP ×2 (02:10→13:53)
[2024-02-20] MEDS: sodium chlor 0.9% + KCl 20 mEq 20 MEQ/1,000 ML BAG 125 MEQ IV ×2 (04:26→13:52)
[2024-02-20] MEDS: lisinopril 20 mg Tablet PO (18:16)
--- NOTE | 2024-02-20 18:38 | PC.NURSE ---
patient report called to adrián land rn received report. transfer pending transpot arrival.
== END 2024-02-20 19:58 | disposition admitted as inpatient to this hospital (09) ==
PROVIDERS: Family Medicine; Emergency Provider Emergency Medicine; PCP Nurse Practitioner
DX: N13.2 Hydronephrosis with renal and ureteral calculous obstruction (principal); N30.00 Acute cystitis without hematuria; F10.10 Alcohol abuse, uncomplicated; G40.89 Other seizures; I10 Essential (primary) hypertension; F17.210 Nicotine dependence, cigarettes, uncomplicated
CPT/HCPCS: 36415; 36416; 70450; 74176; 80053; 80306; 80307; 81003; 81015; 82140; 82962; 83605; 85025; 87040; 87086; 93005; 96365; 96375; 96376; 99285; J0360; J0696; J1953; J2060; J3480; J3490; J7030

== ENCOUNTER 2024-03-10 08:30 | Outpatient (CLI) | payer MEDICAID, SELFPAY ==
--- NOTE | 2024-03-10 08:34 | US_ITS ---
WS: [id number] RIGHT UPPER QUADRANT ULTRASOUND HISTORY: NAUSEA VOMITING COMPARISON: 12/17/2023 Liver: 16.4 cm in length. Mildly enlarged liver. Diffuse hepatic steatosis and attenuation. Entire li tyrone is not well visualized. No mass or bile duct dilatation. Portal Vein: Normal hepatopetal flow with monophasic waveform. Gallbladder: Normally distended with no stones. There is a tiny amount of sludge in the gallbladder. No pericholecystic fluid. No Chatman sign. CBD: 0.3 cm Pancreas: Obscured. Right kidney: 10.2 cm in length. Normal size and echogenicity. No hydronephrosis or mass. Aorta and IVC: Unremarkable abdominal aorta and IVC. No ascites. US/US abdomen limited [id number] IMPRESSION: 1. No cholelithiasis or gallbladder wall thickening. Tiny mass sludge in the g allbladder. 2. No bile duct dilatation. 3. Hepatic steatosis and hepatomegaly.
== END 2024-03-10 08:32 | disposition home or self-care (01) ==
PROVIDERS: PCP Nurse Practitioner; Visit Provider Internal Medicine
DX: K76.0 Fatty (change of) liver, not elsewhere classified (principal); R16.0 Hepatomegaly, not elsewhere classified; R11.2 Nausea with vomiting, unspecified
CPT/HCPCS: 76705

== ENCOUNTER 2024-05-13 15:14 | Emergency (ER) | payer MEDICAID, SELFPAY ==
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
[2024-05-13 15:22] VITALS: BP 189/134; PULSE 127; RESP 17; TEMP 37; O2SAT 97; BMI 27.3
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
[2024-05-13 15:42] VITALS: BP 183/119; PULSE 116; O2SAT 94
[2024-05-13 15:43] LABS: Basophils # 0.1 10^3/uL (0.0-0.1); Basophils % 1.5 %; Eosinophils # 0.1 10^3/uL (0.0-0.8); Eosinophils % 1.3 %; Hematocrit 52.9 % (37-53); Lymphocytes # 2.3 10^3/uL (0.8-4.8); Lymphocytes % 27.6 %; Mean Corpuscular HGB Conc 34.6 g/dL (30-55); Mean Corpuscular Hemoglobin 34.6 pg (27-33); Monocytes # 0.8 10^3/uL (0.2-0.9); Monocytes % 9.3 %; Neutrophils # 4.96 10^3/uL (1.8-7.7); Neutrophils % 60.1 %; Nucleated Red Blood Cells % 0 %; Platelet Count 225 10^3/cmm (157-399); Red Blood Count 5.29 10^6/uL (3.85-5.65); Red Cell Distribution Width 13.9 % (12.1-15.1); White Blood Count 8.26 10^3/uL (3.29-11.43)
[2024-05-13] MEDS: iohexol 350 mg/mL 500 mL Btl (per mL) IV (15:54)
[2024-05-13 16:00] LABS: Alanine Aminotransferase 60 U/L (0-41); Albumin Level 4.5 g/dL (3.5-5.2); Alkaline Phosphatase 219 U/L (40-130); Anion Gap 19.9 (5-19); Aspartate Amino Transferase 128 U/L (0-40); Blood Urea Nitrogen 6 mg/dL (6-20); Calcium 8.7 mg/dL (8.5-10.5); Carbon Dioxide 23 mmol/L (22-29); Chloride 99 mmol/L (98-107); Creatinine Clr Calc Pharmacy 146.2278; Globulin 2.8 g/dL (1.3-4.6); Glomerular Filtration Rate 124.9 mL/min (90-130); Glucose 216 mg/dL (65-115); Osmolality Calculated 292 mOsm/kg (285-295); Sodium 139 mmol/L (136-145); Total Bilirubin 0.4 mg/dL (0.15-1.2); Total Protein 7.3 g/dL (6.6-8.7)
[2024-05-13 16:01] LABS: Alcohol Level 432 mg/dL (0-10); Potassium 2.9 mmol/L (3.5-5.1)
[2024-05-13] MEDS: lidocaine-epi 1% 20 mL INJ INJECTION (16:46)
[2024-05-13 16:52] LABS: Bilirubin Urine Negative (Negative); Blood Urine Negative (Negative); Glucose Urine UA Negative (Normal); Ketones Urine Negative (Negative); Leukocyte Esterase Urine Negative (Negative); Nitrate Urine Negative (Negative); Protein Urine Negative (Negative); Specific Gravity, Urine 1.017 (1.005-1.030); Urine Appearance Clear (CLEAR); Urine Color Yellow (Yellow); Urobilinogen Urine 0.2 mg/dL (Negative)
[2024-05-13 16:57] VITALS: PULSE 116; O2SAT 97
[2024-05-13 16:57] LABS: Add Urine Microscopic? YES; Bacteria Urine None Seen /hpf; Hyaline Casts Urine 0-4 /lpf; RBC Urine 0-2 /hpf (0-2); Squamous Epithelial Cell Urine 0-5 /hpf (0-5); WBC Urine 0-5 /hpf (0-5)
[2024-05-13 16:59] LABS: Amphetamines Screen Urine Negative (Negative); Barbiturates Screen Urine Negative (Negative); Benzodiazepines Screen Urine Negative (Negative); Cocaine Screen Urine Negative (Negative); Opiate Screen Urine Negative (Negative); PCP Screen Urine Negative (Negative); THC Screen Urine Negative (Negative)
[2024-05-13 17:27] VITALS: PULSE 110; O2SAT 97
[2024-05-13] MEDS: potassium chloride oral liq 20 mEq/15 mL UDC 40 MEQ PO (18:39)
[2024-05-13] MEDS: ceFAZolin 1,000 MG in water for injection-sterile 2.5 ML 2.5 MG IM (18:45)
[2024-05-13 19:03] VITALS: BP 196/129; PULSE 130; O2SAT 93
== END 2024-05-13 19:04 | disposition home or self-care (01) ==
PROVIDERS: Emergency Provider Family Medicine; PCP Nurse Practitioner
DX: S01.311A Laceration without foreign body of right ear, initial encounter (principal); S31.113A Laceration without foreign body of abdominal wall, right lower quadrant without penetration into peritoneal cavity, initial encounter; F10.129 Alcohol abuse with intoxication, unspecified; Y90.8 Blood alcohol level of 240 mg/100 ml or more; S01.01XA Laceration without foreign body of scalp, initial encounter; S01.419A Laceration without foreign body of unspecified cheek and temporomandibular area, initial encounter; S01.512A Laceration without foreign body of oral cavity, initial encounter; S05.40XA Penetrating wound of orbit with or without foreign body, unspecified eye, initial encounter; S01.511A Laceration without foreign body of lip, initial encounter; V29.39XA Other motorcycle (driver) (passenger) injured in unspecified nontraffic accident, initial encounter
CPT/HCPCS: 12001; 12006; 12016; 13152; 13153; 36415; 70450; 70486; 71045; 71260; 72125; 74177; 80053; 80306; 80307; 81001; 85025; 96372; 99285; J0690

== ENCOUNTER 2024-10-27 11:14 | Outpatient (CLI) | payer MEDICAID, SELFPAY ==
[2024-10-27 12:28] LABS: Basophils # 0.1 10^3/uL (0.0-0.1); Basophils % 1.5 %; Eosinophils # 0.2 10^3/uL (0.0-0.8); Eosinophils % 2.6 %; Hematocrit 53.8 % (37-53); Lymphocytes # 1.9 10^3/uL (0.8-4.8); Lymphocytes % 25.7 %; Mean Corpuscular HGB Conc 34.2 g/dL (30-55); Mean Corpuscular Hemoglobin 35.2 pg (27-33); Mean Corpuscular Volume 102.9 fl (82-101); Mean Platelet Volume 10.8 fL (7.4-10.4); Monocytes # 0.6 10^3/uL (0.2-0.9); Monocytes % 8.8 %; Neutrophils # 4.46 10^3/uL (1.8-7.7); Nucleated Red Blood Cells % 0 %; Platelet Count 213 10^3/cmm (157-399); Red Blood Count 5.23 10^6/uL (3.85-5.65); Red Cell Distribution Width 14.4 % (12.1-15.1); White Blood Count 7.31 10^3/uL (3.29-11.43)
[2024-10-27 12:44] LABS: INR 0.91 (0.8-1.2)
[2024-10-27 12:53] LABS: Alanine Aminotransferase 151 U/L (0-41); Albumin Level 3.9 g/dL (3.5-5.2); Alkaline Phosphatase 476 U/L (40-130); Anion Gap 18.4 (5-19); Aspartate Amino Transferase 357 U/L (0-40); Blood Urea Nitrogen 8 mg/dL (6-20); Calcium 9.4 mg/dL (8.5-10.5); Carbon Dioxide 25 mmol/L (22-29); Chloride 99 mmol/L (98-107); Globulin 3.1 g/dL (1.3-4.6); Glomerular Filtration Rate 106.5 mL/min (90-130); Glucose 133 mg/dL (65-115); Iron 166 ug/dL (59-158); Osmolality Calculated 288 mOsm/kg (285-295); Potassium 3.4 mmol/L (3.5-5.1); Sodium 139 mmol/L (136-145); Total Bilirubin 2.7 mg/dL (0.15-1.2); Total Iron Binding Capacity 255 mcg/dl; Unsaturated Iron Binding 89 ug/dL (112-347)
[2024-10-27 13:29] LABS: Ferritin 1210 ng/mL (30-400)
== END 2024-10-27 11:15 | disposition home or self-care (01) ==
LOC: LAB 11:16
PROVIDERS: PCP Nurse Practitioner; Visit Provider Nurse Practitioner
DX: R11.10 Vomiting, unspecified (principal)
CPT/HCPCS: 80053; 82728; 83540; 83550; 85025; 85610

== ENCOUNTER 2024-11-03 09:57 | Outpatient (CLI) | payer MEDICAID, SELFPAY ==
--- NOTE | 2024-11-03 10:04 | US_ITS ---
WS: [id number] RIGHT UPPER QUADRANT ULTRASOUND HISTORY: HEPATOMEGALY COMPARISON: 03/10/2024, CT abdomen 05/13/2024 Liver: 18.0 cm in length. Mild to moderate enlarged liver. There is diffuse moderate coarse echotexture. The entire liver is not well visualized. No intrahepatic duct dilatation. Portal Vein: Poorly visualized. Variability in flow. Gallbladder: Normally distended gallbladder with no stones or wall thickening. CBD: 0.5 cm Pancreas: Not visualized. Right kidney: 10.6 cm in length. Normal size and echogenicity. No hydronephrosis or mass. Aorta and IVC: Poorly visualized. No ascites. US/US gall bladder [id number] IMPRESSION: 1. Mild to moderate hepatomegaly with diffuse coarse echotexture. Size of the liver and the heterogeneous echotexture have progressed since 03/10/2024 and als o at the CT of 05/13/2024. Consider progression of hepatic steatosis. 2. Both forward and reversal velocity noted in the portal vein. Early changes of portal venous hypertension suspected. 3. Negative gallbladder.
== END 2024-11-03 09:58 | disposition home or self-care (01) ==
LOC: RAD 09:58
PROVIDERS: PCP Nurse Practitioner; Visit Provider Nurse Practitioner
DX: R16.0 Hepatomegaly, not elsewhere classified (principal); R93.89 Abnormal findings on diagnostic imaging of other specified body structures; R93.2 Abnormal findings on diagnostic imaging of liver and biliary tract
CPT/HCPCS: 76705

== ENCOUNTER 2025-01-31 09:44 | Outpatient (CLI) | payer MEDICAID, SELFPAY ==
--- NOTE | 2025-01-31 09:57 | NM_ITS ---
WS: [id number] NUCLEAR MEDICINE HIDA SCAN WITH GALLBLADDER EJECTION FRACTION HISTORY: RUQ PAIN COMPARISON: Gallbladder ultrasound 11/03/2024 TECHNIQUE: The patient was intravenously injected with 7.5 mCi of TC99m Mebrofenin. Immediate imaging over the right upper quadrant was followed by 5 minute image and additional images for a total of 60 minutes. Normal uptake of radiotracer throughout the liver. Activity identified in the gallbladder at 10 minutes and well distended by 60 minutes. Activity in the proximal small bowel was seen by 50 minutes. Good washout of the radiotracer from the liver by 60 minutes. The patient then drank 8 ounces of Ensure Plus. Ejection fraction at 60 minutes was 41%. Normal GB ejection fraction is 35-75%. Post fatty meal symptoms: None. NM/NM hepatobiliary w phar* [id number] IMPRESSION: 1. No cystic or common bile duct obstruction. 2. Low normal gallbladder ejection fraction.
== END 2025-01-31 09:45 | disposition home or self-care (01) ==
LOC: RAD 09:46
PROVIDERS: PCP Nurse Practitioner; Visit Provider Internal Medicine
DX: R10.11 Right upper quadrant pain (principal)
CPT/HCPCS: 78227; A9537

== ENCOUNTER 2025-04-11 09:49 | Emergency (ER) | payer MEDICAID, SELFPAY ==
--- OUTSIDE RECORDS SUMMARY | 2024-03-01 10:20 | XMS_ITS ---
Author Organization [facility] Address [address] [place] [address] Care Team Providers Care Litigation Services Manager Name Role Phone Jamia Hector APN Primary Care Provider CLOVER Sanchez Unavailable [phone] REASON FOR VISIT 1 wk postop Problems Problem Type SNOMED Code ICD Code Onset Dates Problem Status W/U Status Risk Notes Problem Ureteral stent present (Z96.0) Active confirmed Problem Alcohol withdrawal syndrome (835678876) Alcohol dependence with withdrawal, unspecified (F10.239) Active confirmed Problem Current smoker (24300462) Current smoker (F17.200) Active confirmed Problem History of drug abuse (F19.11) Active confirmed Encounters Encounter Location Date Provider Diagnosis [facility] [address] [place] [address] 03/01/2024 [address]OVER FLOR Encounter to [facility] with new doctor Z76.89 ; Left ureteral stone N20.1 ; Ureteral stent present Z96.0 ; Alcohol dependence with withdrawal, unspecified F10.239 ; Current smoker F17.200 ; History of drug abuse F19.11 and History of hepatitis C Z86.19 Assessments Encounter Date Diagnosis (ICD Code) Assessment Notes Treatment Notes Treatment Clinical Notes Section Notes 03/01/2024 Encounter to establish care with new doctor (ICD-10 - Z76.89) 03/01/2024 Left ureteral stone (ICD-10 - N20.1) 03/01/2024 Ureteral stent present (ICD-10 - Z96.0) 03/01/2024 Alcohol dependence with withdrawal, unspecified (ICD-10 - F10.239) 03/01/2024 Current smoker (ICD-10 - F17.200) 03/01/2024 History of drug abuse (ICD-10 - F19.11) 03/01/2024 History of hepatitis C (ICD-10 - Z86.19) Plan Of Treatment No Information Progress Notes * Don ACUÑA CDOB:[birth year] (39 yo M)Acc No.[id number]:03/01/2024 Patient: Don PEACOCK Provider: Surya Flor APRN-FARMWORKER CRANBERRY :1985 A ge:38 Y S ex:Male Date:03/01/2024 Address:[address] [address] Pcp:Jamia Hector APN Subjective: * Chief Complaints: * 1 . 1 wk postop. * HPI: M igrated HPI: Mr. Acuña is a 38 year old male new patient with left uteral stone s/p left ureteral stent by Dr. Zaidi on 02/21/24. He was initially seen at [facility] in with headache, N/V. WBC of 17.9. CT revealed left ureteral stone. He was having alcohol withdrawl. Transferred to [facility]. He underwent emergent left ureteral stent on 02/21/24, DC on 02/22/24. PMH of IV drug use, he states he is no longer using, tobacco and alcohol dependence with intake of 1 pint of whiskey per day, HTN and Hep C. * Medical History: Objective: * Vitals: Assessment: * Assessment: 1. E ncounter to establish care with new doctor - Z76.89 (Primary) 2 . L eft ureteral stone - N20.1 3 . U reteral stent present - Z96.0 4 .?Alcohol dependence with withdrawal, unspecified - F10.239 5 . C urrent smoker - F17.200 6 . H istory of drug abuse - F19.11 7 . H istory of hepatitis C - Z86.19 Plan: * Treatment: * Billing Information: * Visit Code: * Procedure Codes: * Electronic signature of CLOVER FLOR APRN on 04/11/2025 at 10:53 AM CDT Sign off status: Pending * Provider: Surya Flor APRN-FARMWORKER CRANBERRY Date: 0 03/01/2024 Generated for Govind castellon/Ryan/eTambarsmitting on: 1 10:53 AM CDT
--- OUTSIDE RECORDS SUMMARY | 2024-05-24 06:30 | XMS_ITS ---
Author Organization [facility] Address [address] [place] [phone] Care Team Providers Care Waiter/Waitress Formal Name Role Phone Jamia Layton [phone] REASON FOR VISIT 2 day f/u Social History Sex Assigned At : Social History Observation Description Sex Assigned At Male Encounters Encounter Location Date Provider Diagnosis [facility] [address] [place] [phone] 05/24/2024 Jamia Hector Plan Of Treatment No Information Progress Notes * Don ACUÑA CDOB:[birth year] (39 yo M)Acc No.[id number]:05/24/2024 Patient: William BUTLER Don Gonzalez Provider: William Hector :1985 A ge:38 Y S ex:Male Date:05/24/2024 Address[address] [place] [address] Subjective: * Chief Complaints: * 1 . 2 day f/u. * Medical History: Objective: * Vitals: Assessment: Plan: * Treatment: * Billing Information: * Visit Code: * Procedure Codes: * Electronic signature of CHANDLER Garrison i on 04/11/2025 at 10:53 AM CDT Sign off status: Pending * Provider: William Hector Date: 07/25/2023 Generated for Govind castellon/Ryan/eTransmitting on: 10:53 AM CDT
--- OUTSIDE RECORDS SUMMARY | 2024-11-14 10:00 | XMS_ITS ---
Author Organization [facility] Address [address] [place] [phone] Care Team Providers Care Aviation Electrical Technician Name Role Phone Jamia Layton [phone] REASON FOR VISIT lab/US f/u Social History Sex Assigned At : Social History Observation Description Sex Assigned At Male Encounters Encounter Location Date Provider Diagnosis [facility] [address] [place] [phone] 11/14/2024 Jamia Hector Plan Of Treatment No Information Progress Notes * Don ACUÑA CDOB:[birth year] (39 yo M)Acc No.[id number]:11/14/2024 Patient: William BUTLER Don Gonzalez Provider: William Hector :1985 A ge:39 Y S ex:Male Date:11/14/2024 Address[address] [place] [address] Subjective: * Chief Complaints: * 1 . lab/US f/u. * Medical History: Objective: * Vitals: Assessment: Plan: * Treatment: * Billing Information: * Visit Code: * Procedure Codes: * Electronic signature of LINA Garrison iCM on 04/11/2025 at 10:53 AM CDT Sign off status: Pending * Provider: William Hector Date: 0 11/14/2024 Generated for Govind castellon/Fajeanneg/eTransmitting on: 1 10:53 AM CDT
--- OUTSIDE RECORDS SUMMARY | 2024-12-15 04:20 | XMS_ITS ---
Author Organization [facility] Address [address] [place] [address] Care Team Providers Care Medical Anthropology Director Name Role Phone Jamia Hector APN Primary Care Provider UnavailBill Gongora Unavailable REASON FOR VISIT 2nd opinion Encounters Encounter Location Date Provider Diagnosis [facility] [address] [place] [phone] 12/15/2024 Bill Ho Plan Of Treatment No Information Progress Notes * FRANCESCO ACUÑA CDOB:[birth year] (39 yo M)Acc No.[id number]:12/15/2024 Progress Notes Patient: FRANCESCO PEACOCK Provider: Carlos Ho MD :1985 A ge:39 Y S ex:Male Date:12/15/2024 Address:[place] [address] Pcp:Jamia Hector APN Subjective: * Chief Complaints: * 2 nd opinion Billing Information: * Procedure Codes: Care Plan Details* * Electronic signature of Betsy Ho MD on 04/11/2025 at 10:54 AM CDT Sign off status: Pending * Provider: Carlos Ho MD Date: 0 12/15/2024 Generated for Govind castellon/Ryan/eTransmitting on: 1 10:54 AM CDT
--- OUTSIDE RECORDS SUMMARY | 2025-01-24 05:20 | XMS_ITS ---
Author Organization [facility] Address [address] [place] [phone] Care Team Providers Care Binder And Wrapper Packer Name Role Phone Jamia Layton [phone] REASON FOR VISIT 1 month f/u Social History Sex Assigned At : Social History Observation Description Sex Assigned At Male Encounters Encounter Location Date Provider Diagnosis [facility] [address] [place] [phone] 01/24/2025 Jamia Hector Plan Of Treatment No Information Progress Notes * Don ACUÑA CDOB:[birth year] (39 yo M)Acc No.[id number]:01/24/2025 Patient: William BUTLER Don Gonzalez Provider: William Hector :1985 A ge:39 Y S ex:Male Date:01/24/2025 Address:[address] [address] Subjective: * Chief Complaints: * 1 . 1 month f/u. * Medical History: Objective: * Vitals: Assessment: Plan: * Treatment: * Billing Information: * Visit Code: * Procedure Codes: * Electronic signature of LINA Garrison iCM on 04/11/2025 at 10:52 AM CDT Sign off status: Pending * Provider: William Hector Date: 0 01/24/2025 Generated for Govind castellon/Ryan/eTransmitting on: 1 10:52 AM CDT
[2025-04-11 09:56] VITALS: BP 148/108; PULSE 104; TEMP 36.7; O2SAT 96
--- NOTE | 2025-04-11 10:08 | ED_ITS ---
HPI - Abdominal Pain 2 General: Chief Complaint: Abdominal Pain Stated Complaint: lower abd pain Time Seen by Provider: 04/11/25 10:01 History of Present Illness: 39-year-old male presents emergency room with complaint of right lower quadrant abdominal pain last couple days. Pain reports to wax and wane. He will have sharp pain for an hour and then will resolve for several hours and recur again he denies dysuria urgency or frequency. He has had kidney stones in the past he has not had any hematuria. He denies fever sweats or chills he says nausea without vomiting. He has a history of alcoholic liver disease the extent of which is not fully known he still being evaluated. He continues to drink at least a pint of whiskey per day. No previous abdominal surgeries. Associated Symptoms: Denies chills, dysuria and fever(s) Related Data Home Medications ?Medication ?Instructions ?Recorded ?Confirmed pantoprazole 40 mg tablet,delayed 40 mg PO DAILY 03/0704/11/25 release Previous Rx's ?Medication ?Instructions ?Recorded famotidine 40 mg tablet (Pepcid) 40 mg PO BID #30 tabs 12/03/23 hydrocodone 5 mg-acetaminophen 325 1 tab PO Q6H PRN pa in #15 tabs 04/11/25 mg tablet promethazine 25 mg tablet 25 mg PO Q6H PRN nausea and 04/11/25 vomiting #20 tabs tamsulosin 0.4 mg capsule 0.4 mg PO DAILY #10 caps Allergies Allergy/AdvReac Type Severity Reaction Status Date / Time No Known Allergies Allergy Verified 04/11/25 10:00 Review of Systems 2 Const: Denies: fever(s) or chills Card: Denies: chest pain Resp: Denies: dyspnea GI: Denies: abdominal pain : Denies: dysuria, urinary frequency or urinary urgency Musc: Denies: neck pain or back pain Skin/Breast: Denies: rash PFSH ED 2 PFSH: Social History (Updated 04/11/25 @ 10:09 by Nikita Beatty DO) Smoking and tobacco/nicotine status: never used tobacco/nicotine Alcohol intake: current Alcohol intake frequency: 3 or more drinks per day Substance/Drug Use: former Date of last use: hx of meth; 2017 Current gender identity: Male Physical Exam 2 Const: COMMON NORMALS: no acute distress GENERAL APPEARANCE: cooperative and comfortable ORIENTATION/CONSCIOUSNESS: Yes awake, Yes oriented to person, Yes oriented to place and Yes oriented to time HENMT: COMMON NORMALS: normocephalic, atraumatic and hearing grossly normal bilaterally HEAD & SCALP: normocephalic and atraumatic Resp: COMMON NORMALS: normal respiratory effort, No retractions, No use of accessory muscles and clear to auscultation bilaterally AUSCULTATION: clear to auscultation bilaterally Cardio: COMMON NORMALS: regular rate, regular rhythm and No murmurs present (Cardio) RATE: regular rate RHYTHM: regular rhythm GI: COMMON NORMALS: Soft to palpation and No hepatosplenomegaly present A USCULTATION: Yes normoactive bowel sounds PALPATION: Yes Soft to palpation, No Tenderness to palpation present (GI), No Guarding due to palpation present (GI) and Yes No hepatosplenomegaly present Extremity: COMMON NORMALS: normal to inspection, capillary refill normal, no clubbing, cyanosis or edema, no calf tenderness and no pedal edema Neuro: SENSORIUM/ORIENTATION: Yes oriented to person, Yes oriented to place and Yes oriented to time Skin: COMMON NORMALS: no rashes or lesions noted GENERAL SKIN EXAM: no rashes or lesions noted Course 2 Vital Signs: Vital signs: Vital Signs Temperature 98.1 F 04/11/25 09:56 Pulse Rate 87 04/11/25 10:59 Blood Pressure 142/104 04/11/25 10:27 Pulse Oximetry 93 04/11/25 10:59 Oxygen Delivery Me thod Room Air 04/11/25 10:59 MDM - Abdominal Pain Medical Decision Making Bilateral kidney stones on CT. No sign of infection. Pain is well-controlled will discharge home with pain medications Flomax strain urine and set him up for outpatient urology. Return if is further symptoms or develops uncontrolled pain or fever. Lab Data 04/11/25 10:20 04/11/25 10:20 Labs/Radiology: Radiology Impressions Abdomen/Pelvis CT 04/11/25 10:30 IMPRESSION: 1. Bilateral obstructing proximal ureteral calculi measuring 4.4 mm RIGHT and 5.2 mm LEFT with mild bilateral pelvicaliectasis and ureterectasis. Mild bilateral perinephric stranding. 2. Fatty liver with hepatomegaly. 3. No other acute findings Laboratory Results WBC 7.44 10^3/uL (3.29-11.43) 04/11/25 10:20 RBC 4.57 10^6/uL (3.85-5.65) 04/11/25 10:20 Hgb 16.60 g/dL (11.27-16.99) 04/11/25 10:20 Hct 48.1 % (37-53) 04/11/25 10:20 MCV 105.3 fl (82-101) H 04/11/25 10:20 MCH 36.3 pg (27-33) H 04/11/25 10:20 MCHC 34.5 g/dL (30-55) 04/11/25 10:20 RDW 14.2 % (12.1-15.1) 04/11/25 10:20 Plt Count 281 10^3/cmm (157-399) 04/11/25 10:20 MPV 9.1 fL (7.4-10.4) 04/11/25 10:20 Neut % (Auto) 47.4 % 04/11/25 10:20 Lymph % (Auto) 37.4 % 04/11/25 10:20 [place] % (Auto) 12.0 % 04/11/25 10:20 Eos % (Auto) 1.5 % 04/11/25 10:20 Baso % (Auto) 1.6 % 04/11/25 10:20 Neut # (Auto) 3.53 10^3/uL (1.8-7.7) 04/11/25 10:20 Lymph # (Auto) 2.8 10^3/uL (0.8-4.8) 04/11/25 10:20 [place] # (Auto) 0.9 10^3/uL (0.2-0.9) 04/11/25 10:20 Eos # (Auto) 0.1 10^3/uL (0.0-0.8) 04/11/25 10:20 Baso # (Auto) 0.1 10^3/uL (0.0-0.1) 04/11/25 10:20 Nucleated RBC % (auto) 0 % 04/11/25 10:20 Nucleated RBCs # 0.0 /100WBC 04/11/25 10:20 Sodium 143 mmol/L (136-145) 04/11/25 10:20 Potassium 3.1 mmol/L (3.5-5.1) L 04/11/25 10:20 Chloride 103 mmol/L (98-107) 04/11/25 10:20 Carbon Dioxide 24 mmol/L (22-29) 04/11/25 10:20 Anion Gap 19.1 (5-19) H 04/11/25 10:20 BUN 6 mg/dL (6-20) 04/11/25 10:20 Creatinine 0.8 mg/dL (0.7-1.2) 04/11/25 10:20 GFR Calculation 106.5 mL/min (90-130) 04/11/25 10:20 Glucose 116 mg/dL (65-115) H 04/11/25 10:20 Calculated Osmolality 295 mOsm/kg (285-295) 04/11/25 10:20 Calcium 8.8 mg/dL (8.5-10.5) 04/11/25 10:20 Total Bilirubin 0.5 mg/dL (0.15-1.2) 04/11/25 10:20 AST 149 U/L (0-40) H 04/11/25 10:20 ALT 84 U/L (0-41) H 04/11/25 10:20 Alkaline Phosphatase 312 U/L (40-130) H 04/11/25 10:20 Total Protein 6.7 g/dL (6.6-8.7) 04/11/25 10:20 Albumin 4.2 g/dL (3.5-5.2) 04/11/25 10:20 Globulin 2.5 g/dL (1.3-4.6) 04/11/25 10:20 Lipase 19 U/L (13-60) 04/11/25 10:20 Urine Color Yellow (Yellow) 04/11/25 10:15 Urine Appearance Cloudy (CLEAR) A 04/11/25 10:15 Urine pH 5.5 (5-7) 04/11/25 10:15 Ur Specific [place] 1.018 (1.005-1.030) 04/11/25 10:15 Urine Protein 1+ (Negative) A 04/11/25 10:15 Urine Glucose (UA) Negative (Normal) 04/11/25 10:15 Urine Ketones Trace (Negative) 04/11/25 10:15 Urine Blood 3+ (Negative) A 04/11/25 10:15 Urine Nitrate Negative (Negative) 04/11/25 10:15 Urine Bilirubin Negative (Negative) 04/11/25 10:15 Urine Urobilinogen 1.0 mg/dL (Negative) 04/11/25 10:15 Ur Leukocyte Esterase Trace (Negative) A 04/11/25 10:15 Urine RBC >100 /hpf (0-2) H 04/11/25 10:15 Urine WBC 6-10 /hpf (0-5) 04/11/25 10:15 Ur Squamous Epith Cells 0-5 /hpf (0-5) 04/11/25 10:15 Amorphous Sediment Not Reportable 04/11/25 10:15 Urine Bacteria None seen /hpf (NONE) 04/11/25 10:15 Hyaline Casts 11.57 /lpf 04/11/25 10:15 All radiology interpretation(s) finalized by discharge Discharge Plan Discharge Patient Disposition: Home Clinical Impression: Calculus of kidney Prescriptions: New tamsulosin 0.4 mg capsule 0.4 mg PO DAILY Qty: 10 0RF hydrocodone-acetaminophen 5-325 mg tablet 1 tab PO Q6H PRN (Reason: pain) Qty: 15 0RF promethazine 25 mg tablet 25 mg PO Q6H PRN (Reason: nausea and vomiting) Qty: 20 0RF No Action pantoprazole 40 mg tablet,delayed release (DR/EC) 40 mg PO DAILY famotidine [Pepcid] 40 mg tablet 40 mg PO BID Qty: 30 0RF Discharge Orders: Discharge ED (Routine); Ordered 04/11/25 Ordered By: Nikita Beatty Referrals: Jamia Hector, [facility] [Primary Care Provider, Family Practice] Discharge Diet: Usual diet Discharge Activity: Increase activity as tolerated Patient Instructions: Kidney Stones (ED), How to Strain Your Urine (ED), Opioid Safety, Pain Management, Patient Portal & Ming Instructions Activity Restrictions/Additional Instructions: Thank you for choosing [facility] for your healthcare needs today. It is very important that you follow up as instructed or that you return to the Emergency Department should you have concerns or if your condition changes or worsens in any way. Emergency department visits are focused on emergent conditions, in some cases you may require further evaluation on an outpatient basis. You were seen in the emergency room with complaints of flank pain. CT shows bilateral kidney stones. Your pain is controlled with pain medications given discharge home with Flomax to help pass kidney stones pain medications. Strain the urine for to catch the stones and we will refer you back to urologist in [place] you have seen previously. (Please note that included in your discharge packet is information concerning opioid safety and pain management. This information is given to all patients were discharged from the ER regardless of their discharge diagnosis or the medicines they usually take or are prescribed.) Print Language: Ghanaian Coding Level of Care Code ED Dance Director for Shanon Perez
[2025-04-11 10:21] LABS: Glucose Urine UA Negative (Normal); Nitrate Urine Negative (Negative); Specific Gravity, Urine 1.018 (1.005-1.030)
[2025-04-11 10:23] LABS: Add Urine Microscopic? YES
[2025-04-11 10:24] LABS: UA Slide Review UA Slide Review Perf
[2025-04-11 10:27] VITALS: BP 142/104; PULSE 94; O2SAT 93
--- NOTE | 2025-04-11 10:30 | CT_ITS ---
WS: [id number] CT ABDOMEN PELVIS TECHNIQUE: Noncontrast CT of the abdomen and pelvis with coronal and sagittal reformatted images. CLINICAL INFORMATION: flank pain COMPARISON: 2023 DLP: 648.[address] scans at [facility] use at least one of these dose optimization techniques: automated exposure control; mA and/or kV adjustment per patient size (includes targeted exams where dose is matched to clinical indication); or iterative reconstruction. FINDINGS: Obstructing RIGHT proximal ureteral calculus measuring 4.4 mm. Mild perinephric stranding about the RIGHT kidney. Mild RIGHT ureterectasis and pelvicaliectasis. Obstructing LEFT proximal ureteral calculus measuring 5.2 mm with mild LEFT pelvicaliectasis and ureterectasis. Mild perinephric stranding. Additional subcentimeter nonobstructing calyceal calculi bilaterally. Hepatomegaly. Fatty liver. Small esophageal hiatal hernia. Normal noncontrast spleen. Sigmoid diverticulosis. Normal appendix. Fat-containing LEFT inguinal hernia. Adrenal glands are normal. Small fat-containing umbilical hernia. Mild aortic calcification. Mild disc bulge L4-L5 and L5-S1. CT/CT kidney stone [id number] IMPRESSION: 1. Bilateral obstructing proximal ureteral calculi measuring 4.4 mm RIGHT and 5.2 mm LEFT with mild bilateral pelvicaliectasis and ureterectasis. Mild bilat eral perinephric stranding. 2. Fatty liver with hepatomegaly. 3. No other acute findings
[2025-04-11 10:31] LABS: Hematocrit 48.1 % (37-53); Hemoglobin 16.60 g/dL (11.27-16.99); Mean Corpuscular HGB Conc 34.5 g/dL (30-55); Mean Corpuscular Hemoglobin 36.3 pg (27-33); Mean Corpuscular Volume 105.3 fl (82-101); Nucleated Red Blood Cells % 0 %; Platelet Count 281 10^3/cmm (157-399); Red Blood Count 4.57 10^6/uL (3.85-5.65); White Blood Count 7.44 10^3/uL (3.29-11.43)
--- NOTE | 2025-04-11 10:43 | PC.PHAR ---
Pt ran out of Protonix 40mg and had found an older rx for Pepcid 40mg. Pt is currently taking it until he can get more Protonix.
[2025-04-11 10:46] LABS: Alanine Aminotransferase 84 U/L (0-41); Albumin Level 4.2 g/dL (3.5-5.2); Alkaline Phosphatase 312 U/L (40-130); Anion Gap 19.1 (5-19); Aspartate Amino Transferase 149 U/L (0-40); Blood Urea Nitrogen 6 mg/dL (6-20); Calcium 8.8 mg/dL (8.5-10.5); Carbon Dioxide 24 mmol/L (22-29); Chloride 103 mmol/L (98-107); Creatinine Clr Calc Pharmacy 123.5513; Globulin 2.5 g/dL (1.3-4.6); Glucose 116 mg/dL (65-115); Lipase 19 U/L (13-60); Osmolality Calculated 295 mOsm/kg (285-295); Potassium 3.1 mmol/L (3.5-5.1); Sodium 143 mmol/L (136-145); Total Protein 6.7 g/dL (6.6-8.7)
--- OUTSIDE RECORDS SUMMARY | 2025-04-11 10:53 | XMS_ITS | Patient Health Record ---
[facility] Address [address] [address] Care Team Providers Care Group Director Name Role Phone Jamia Hector Unavailable [phone] Allergies Allergen (clinical drug ingredient) Drug/Non Drug Allergy documented on EMR Reaction Allergy Type Onset Date Status escitalopram Lexapro weird dreams Drug Allergy A ctive Reason For Referral Reason us liver/RUQ. [facility] wp Diagnosis 1 Hepatomegaly (R16.0) [facility] Referring Provider First Name Jamia Referring Provider Last Name Referring Provider [facility] Referred Provider Centralized ROBERT Alvarez Procedure 1 US Gallbladder (7670 [id number]) General Notes Cristy Gabriel 2024 02:13:36 PM >ID and ins card attached.Harvey Wendy 10/23/2024 02:43:12 PM >NO PA required on ultrasounds w/ pt's insurance. Referral faxed.Harvey Wendy 10/26/2024 12:10:00 PM >Attempt TC to [facility] Centralized Scheduling. Left message to return my call.Harvey Wendy 10/26/2024 12:56:15 PM >TC from Rita w/ [facility] Centralized Scheduling. Confirmed appt 11/03/24 at 10:15 am. Pt notified of appt by their clinic. Referral Priority Routine Referral Appointment Date 11/03/2024 Medications Medication SIG (Take, Route, Frequency, Duration) Notes Start Date End Date Status Venlafaxine HCl ER 37.5 MG 1 capsule wit h food for anxiety Orally Once a day; Duration: 30 days 01/04/2025 Active Lisinopril 10 MG 1 tablet Orally Once a day 12/20/2023 Active Albuterol Sulfate HFA 108 (90 Base) MCG/ACT 2 puff as needed for cough/wheezing/or congestin Inhalation every 4 hrs 05/24/2024 Not-Taking Zofran Not-Taking Escitalopram Oxalate 10 MG 1 tablet Oral ly Once a day; Duration: 30 days 12/20/2023 Not-Takin g Pantoprazole Sodium 40 MG Take 1 tablet by mouth once daily; Duration: 30 days Active Famotidine 40 MG 1 tab Orally Once a day; Duration: 30 days Active metroNIDAZOLE 500 MG 1 tablet Orally twi ce a day 02/05/2024 Not-Taking Potassium 99 MG 1 tablet Orally Once a day Not-Taking Social History Tobacco Use: Social History Observation Description Date Details (start date - stop date) Current Smoker NA - NA Sex Assigned At : Social History Observation Description Sex Assigned At Male Household Question Answer Notes Marital status: single Tobacco Use/Smoking Question Answer Notes Tobacco use: current smoker How often do you smoke cigarettes? every day How many cigarettes a day do you smoke? 11-20 How soon after you wake up do you smoke your fir st cigarette? after 60 minutes Are you interested in quitting? Ready to quit Alcohol Screen (Audit-C) Question Answer Notes Did you have a drink contain ing alcohol in the past year? Yes How often did you have a dri nk containing alcohol in the past year? 4 or more times a week (4 points) How many drinks did you have on a typical day when you were drinking in the past year? 10 or more drinks (4 points) How often did you have 6 or more drinks on one occasion in the past year? Daily or almost daily (4 points) Points 12 Interpretation Positive Section Notes: drinks etoh daily 6-12 beers and some times whiskey Problems Problem Type SNOMED Code ICD Code Onset Dates Problem Status W/U Status Risk Notes Problem Essential hypertension (62148597) Essential hypertension (I10) Active confirmed Problem Anxiety (42334452) Anxiety (F41.9) Active confi rmed Problem Gastroesophageal reflux disease (022579048) Gastroesophageal reflux disease, unspecified whether esophagitis present (K21.9) Active confirmed Problem Mixed anxiety and depressive disorder (686714942) Depression with anxiety (F41.8) Active confirmed Problem Ethanol abuse (08156068) ETOH abuse (F10.10) Active confirmed Problem Jaundice (09911067) Elevated lorraine irubin (R17) Active confirmed Problem Viral hepatitis type C (63182145) Hepatitis C virus infection without hepatic coma, unspecified chronicity (B19.20) Active confirmed Problem Alkaline phosphatase raised (815885755) Elevated alkaline phosphatase level (R74.8) Active confirmed Problem Ureteral stent present (Z96.0) Active confirmed Problem 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) Active confirmed Problem Paresthesia (finding) (23869194) Paresthesias (R20.2) Active confirmed Vital Signs Heart Rate 96 /min 12/20/2024 Temperature 97.6 degrees Fahrenheit 12/20/2024 Height-cm 170.18 cm 12/20/2024 Oximetry 96 % 12/20/2024 Blood pressure diastolic 95 mm Hg 12/20/2024 Weight-kg 79.92 kg 12/20/2024 Height 67 in 12/20/2024 Blood pressure systolic 160 mm Hg 12/20/2024 Weight 176.2 lbs 12/20/2024 BMI 27.59 kg/m2 12/20/2024 Encounters Encounter Location Date Provider Diagnosis [facility] [address] [address] 05/22/2024 Jamia Hector Bronchitis J40 ; Vis it for suture removal Z48.02 and Laceration of right external ear, initial encounter S01.311A [facility] [address] [address] 05/26/2024 Jamia Hector Visit for suture rem oval Z48.02 [facility] [address] [address] 09/26/2024 Jamia Hector Gastroesophageal ref lux disease, unspecified whether esophagitis present K21.9 ; Essential hypertension I10 ; Hepatomegaly R16.0 and ETOH abuse F10.10 [facility] [address] [address] 12/20/2024 Jamia Hector Hepatomegaly R16.0 ; Gastroesophageal reflux disease, unspecified whether esophagitis present K21.9 ; Essential hypertension I10 ; ETOH abuse F10.10 ; Anxiety F41.9 and Hordeolum externum of left lower eyelid H00.[address] [address] 09/28/2024 Jamiamonet Hector [address] [address] 10/12/2024 Jamia Hepatomegaly R16.[address] [address] 11/01/[address] [address] 11/06/[address] [address] 01/03/2025 Jamia Assessments Encounter Date Diagnosis (ICD Code) Assessment Notes Treatment Notes Treatment Clinical Notes Section Notes 05/22/2024 Visit for suture removal (ICD-10 - Z48.02) All sutures removed except for the right ear sutures. Can gently moisturize wounds with thin layer of Vaseline. Gentle washing with mild soap 05/22/2024 Bronchitis (ICD-10 - J40) 05/26/2024 Visit for suture removal (ICD-10 - Z48.02) Gently cleanse wound daily. Can apply thin layer of Vaseline if needed. Return to clinic as needed. 09/26/2024 Essential hypertension (ICD-10 - I10) 09/26/2024 Gastroesophageal reflux disease, unspecified whether esophagitis present (ICD-10 - K21.9) Will refer for repeat ultrasound. 10/12/2024 Hepatomegaly (ICD-10 - R16.0) 12/20/2024 Gastroesophageal reflux disease, unspecified whether esophagitis present (ICD-10 - K21.9) 12/20/2024 Hepatomegaly (ICD-10 - R16.0) he will call dr blandon for f/u 09/26/2024 Hepatomegaly (ICD-10 - R16.0) 12/20/2024 Essential hypertension (ICD-10 - I10) 05/22/2024 Laceration of right external ear, initial encounter (ICD-10 - S01.311A) Keep sutures clean and dry. Return to clinic 2 days for suture removal from right ear. 12/20/2024 ETOH abuse (ICD-10 - F10.10) we discussed need to d/c etoh 09/26/2024 ETOH abuse (ICD-10 - F10.10) 12/20/2024 Anxiety (ICD-10 - F41.9) 12/20/2024 Hordeolum externum of left lower eyelid (ICD-10 - H00.015) Plan Of Treatment No Information Insurance Providers Payer Name Payer Address Payer Phone Subscriber Number Group Number Insured Name Patient Relationship to Insured Coverage Start Date Coverage End Date [address] [place] [address] [id number] Don Adkins Self - patient is the insured Medical (General) History Medical History History ICD Code Hepatitis C Hepatomegaly N/V H/O IV drug use etoh abuse Hospitalization History Reason Date(Month/Year) [facility] 2023
--- OUTSIDE RECORDS SUMMARY | 2025-04-11 10:54 | XMS_ITS | Patient Health Record ---
Author Organization [facility] Address [address] [place] [address] Care Team Providers Care Publishing Editor Name Role Phone Jamia Hector APN Primary Care Provider Bill Vargas Unavailable Allergies No Known Allergies Results Component Value Reference Range Notes NM HB (Hepatobiliary) Scan-7 [id number] Reviewed date:01/31/2025 02:23:32 PM Interpretation: Performing Lab: Notes/Report: Reason For Referral Reason Sick Gallbladder Diagnosis 1 Nausea and vomiting, unspecified vomiting type (R11.2) Referral Organization [facility] Referring Provider First Name Gaston mclaughlin Referring Provider Last Name Vic Referring Provider Speciality Internal M edicine General Notes Jade Toscano 01:45:09 PM CDT > faxed to [phone] General Surgery- Jd PALOMO Heidi 03/13/2025 02:40:57 PM CDT > PROGRESS NOTES IN REFERRAL FILE Referral Priority Routine Medications Medication SIG (Take, Route, Frequency, Duration) Notes Start Date End Date Status Ondansetron 4 MG Tablet Disintegrating 1 tablet on the tongue and allow to dissolve as needed Orally Once a day Not-Taking Famotidine 40 MG Tablet as directed Oral ly Twice a day Not-Taking Lisinopril 10 MG Tablet 2 tablet Orally Once a day Active HYDROcodone-Acetaminophen 5-325 MG Tablet 1 tablet as needed Orally every 6 hrs Not-Taking Ciprofloxacin HCl 500 MG Tablet 1 tablet Orally every 12 hrs Not-Taking Amoxicillin 875 MG Tablet 1 tablet Orall y Twice a day Not-Taking Escitalopram Oxalate 10 MG Tablet 1 tablet Orally Once a day Not-Taking Ketorolac Tromethamine 10 MG Tablet 1 tablet with food or milk as needed Orally every 6 hrs Not-Taking Social History Tobacco Use: Social History Observation Description Date Details (start date - stop date) Current Smoker NA - NA Social History Depression Screening Social Info Question Answer Notes depression screening findings Findings Positive (9+ without suicidality) Completed 01/10/25 PHQ-9 Little interest or pleasure in doing things Nearly every day Feeling down, depressed, or hopeless Not at all Trouble falling or staying asleep, or sleeping t oo much Nearly every day Feeling tired or having little energy More than half the days Poor appetite or overeating Nearly every day Feeling bad about yourself, or that you are a failure, or have let yourself or your family down Not at all Trouble concentrating on thi ngs, such as reading the newspaper or watching television Nearly every day Moving or speaking so slowly that other people could have noticed. Or the opposite ? being so fidgety or restless that you have been moving around a lot more than usual Not at all Thoughts that you would be b [place] off , or of hurting yourself in some way Not at all Total Score 14 Interpretation Moderate Depression Drugs/Alcohol: Social Info Question Answer Notes Drugs Have you used drugs other than those for medical reasons in the past 12 months? No Drug/Alcohol: Social Info Question Answer Notes AUDIT-C (Standard) Did you have a drink containing alcohol in the past year? No Points 0 Interpretation Negative Tobacco Use: Social Info Question Answer Notes Tobacco Control (Standard) Tobacco use: Current smoker How often do you smoke cigarettes? Every day How many cigarettes a day do you smoke? 6-10 Section Notes: CIME Dep/Tob 01/10/25 Problems Problem Type SNOMED Code ICD Code Onset Dates Problem Status W/U Status Risk Notes Problem Reeder's esophagus (098386135) Reeder's esophagus without dysplasia (K22.70) Active confirmed Problem CSG - Chronic superficial gastritis (165365032) Chronic superficial gastritis without bleeding (K29.30) Active confirmed Problem Epigastric pain (09775577) Epigastric pain (R10.13) Active confirmed Problem Chronic hepatitis C (668439359) Hep C w/o coma, chronic (B18.2) Active confirmed Problem Nausea and vomiting (85945004) Nausea and vomiting, unspecified vomiting type (R11.2) Active confirmed Vital Signs Heart Rate 108 /min 01/10/2025 Temperature 98.7 degrees Fahrenheit 01/10/2025 Height-cm 170.18 cm 01/10/2025 Oximetry 94 % 01/10/2025 Blood pressure diastolic 90 mm Hg 01/10/2025 Weight-kg 80.74 kg 01/10/2025 Height 67 in 01/10/2025 Blood pressure systolic 144 mm Hg 01/10/2025 Weight 178 lbs 01/10/2025 BMI 27.88 kg/m2 01/10/2025 Encounters Encounter Location Date Provider Diagnosis [facility] [address] [address] 01/10/2025 Christophazra Ho Epigastric pain R10.13 ; Nausea and vomiting, unspecified vomiting type R11.2 and Depression screen Z13.31 [facility] [address] [address] 02/15/2025 Bill Ho Nausea and vomiting, unspecified vomiting type R11.2 Assessments Encounter Date Diagnosis (ICD Code) Assessment Notes Treatment Notes Treatment Clinical Notes Section Notes 01/10/2025 Epigastric pain (ICD-10 - R10.13) 01/10/2025 Nausea and vomiting, unspecified vomiting type (ICD-10 - R11.2) 02/15/2025 Nausea and vomiting, unspecified vomiting type (ICD-10 - R11.2) 01/10/2025 Depression screen (ICD-10 - Z13.31) Plan Of Treatment No Information Insurance Providers Payer Name Payer Address Payer Phone Subscriber Number Group Number Insured Name Patient Relationship to Insured Coverage Start Date Coverage End Date [facility] [employer] [address] [place] [address] [id number] FRANCESCO WESLEY Self - patient is the insured [facility] [employer] [address] [place] [address] [id number] FRANCESCO WESLEY Self - patient is the insured Medical (General) History Medical History History ICD Code kidney stones hepatitis C
--- OUTSIDE RECORDS SUMMARY | 2025-04-11 10:55 | XMS_ITS | Patient Health Record ---
Author Organization [facility] Address [address] [place] [address] Care Team Providers Care Meteorology Professor Name Role Phone Jamia Hector APN Primary Care Provider CLOVER Sanchez Unavailable [phone] Reason For Referral No Information Problems Problem Type SNOMED Code ICD Code Onset Dates Problem Status W/U Status Risk Notes Problem Alcohol withdrawal syndrome (601054570) Alcohol dependence with withdrawal, unspecified (F10.239) Active confirmed Problem Current smoker (35287561) Current smoker (F17.200) Active confirmed Problem History of drug abuse (F19.11) Active confirmed Problem Ureteral stent present (Z96.0) Active confirmed Plan Of Treatment No Information Insurance Providers Payer Name Payer Address Payer Phone Subscriber Number Group Number Insured Name Patient Relationship to Insured Coverage Start Date Coverage End Date [facility] [address] [address] [place], [place] [id number] Don Adkins Self - patient is the insured [place] Medicaid [address] [place], [place] [id number] Don Patel Self - patient is the insured
[2025-04-11 10:59] VITALS: PULSE 87; O2SAT 93
--- NOTE | 2025-04-18 07:32 | DCPLANNER ---
Referral sent to [facility] in [facility]
--- NOTE | 2025-04-18 08:36 | DCPLANNER ---
[facility] urology does not accept patients insurance- Out of network- sent to [facility] urolog
== END 2025-04-11 11:49 | disposition home or self-care (01) ==
PROVIDERS: Emergency Provider Family Medicine; PCP Nurse Practitioner
DX: N20.0 Calculus of kidney (principal)
CPT/HCPCS: 36415; 74176; 80053; 81001; 83690; 85025; 87086; 99284; J7030